=== PATIENT | female | born 2000 | race African-American/Black ===

== ENCOUNTER 2018-02-22 08:25 | Emergency (ER) | payer SELFPAY ==
--- NOTE | 2018-02-22 09:03 | EDM.PDOC ---
ED HPI GENERAL MEDICAL PROBLEM - General Chief Complaint: General Stated Complaint: COUGH/BODY ACHES/CONGESTION Time Seen by Provider: 02/22/18 08:54 - History of Present Illness INITIAL COMMENTS - FREE TEXT/NARRATIVE: 17-year-old female comes in with body aches fevers and a dry nonproductive cough. This started the day before yesterday she felt really good the day before that. She did not have a flu shot this year. Past medical history is unremarkable. Patient is tried some ibuprofen that has not really seem to help. She has no nausea vomiting or diarrhea just is achy all over and has a irritating nonproductive cough she feels warm all the time no documented fevers. Generalized Pain Score (Numeric/FACES): 7 - Related Data Allergies Allergy/AdvReac Type Severity Reaction Status Date / Time No Known Allergies Allergy Verified 02/22/18 08:31 Home Meds: Home Meds Oseltamivir [Tamiflu] 75 mg PO Q12H #10 cap 02/22/18 [Rx] Past Medical History - Past Health History Medical/Surgical History: Denies Medical/Surgical History Social & Family History - Family History Family Medical History: Noncontributory - Tobacco Use Smoking Status *Q: Current Every Day Smoker Years of Tobacco use: 3 Packs/Tins Daily: 0.1 - Caffeine Use Caffeine Use: Reports: Coffee, Soda - Recreational Drug Use Recreational Drug Use: Yes Drug Use in Last 12 Months: Yes Recreational Drug Type: Reports: Marijuana/Hashish Recreational Drug Use Frequency: Socially ED ROS GENERAL - Review of Systems Review Of Systems: See Below Constitutional: Reports: Fever, Chills, Other (Nothing documented) HEENT: Reports: Rhinitis Respiratory: Reports: Cough. Denies: Shortness of Breath, Wheezing, Sputum, Hemoptysis Cardiovascular: Reports: No Symptoms Endocrine: Reports: No Symptoms GI/Abdominal: Denies: Constipation, Diarrhea, Nausea, Vomiting : Reports: No Symptoms Musculoskeletal: Reports: Muscle Pain Skin: Reports: No Symptoms Neurological: Reports: No Symptoms Psychiatric: Reports: No Symptoms ED EXAM, GENERAL - Physical Exam Exam: See Below Exam Limited By: No Limitations General Appearance: Alert, No Apparent Distress, Other (Vitals normal) Eye Exam: Bilateral Eye: Normal Inspection Ears: Normal External Exam, Normal Canal, Hearing Grossly Normal, Normal TMs Nose: Clear Rhinorrhea Throat/Mouth: Normal Inspection, Normal Lips, Normal Teeth, Normal Gums, Normal Oropharynx, Normal Voice, No Airway Compromise Head: Atraumatic, Normocephalic Neck: Normal Inspection, Supple, Non-Tender, Full Range of Motion Respiratory/Chest: No Respiratory Distress, Lungs Clear, Normal Breath Sounds Cardiovascular: Regular Rate, Rhythm, No Edema, No Murmur GI/Abdominal: Normal Bowel Sounds, Soft, Non-Tender Back Exam: Normal Inspection, Other (She has some vague muscle discomfort). No : CVA Tenderness (L), CVA Tenderness (R) Extremities: Normal Inspection, No Pedal Edema Neurological: Alert, Oriented, Normal Cognition Psychiatric: Normal Affect, Normal Mood Course - Vital Signs Last Recorded V/S: Last Vital Signs Temp 36.7 C 02/22/18 08:31 Pulse 69 02/22/18 08:31 Resp 18 02/22/18 08:31 BP 132/76 02/22/18 08:31 Pulse Ox 95 02/22/18 08:31 - Re-Assessments/Exams Free Text/Narrative Re-Assessment/Exam: 02/22/18 09:06 Discussed the pros and cons of checking a flu test even if it came back negative I would offer her treatment with Tamiflu. The patient would like to try the Tamiflu understanding and has side effects as well. We'll start her on an albuterol MDI to help with the bronchitis component of her illness. Departure - Departure Time of Disposition: 09:07 Disposition: Home, Self-Care 01 Clinical Impression: Influenza, Bronchitis - Discharge Information Prescriptions: Oseltamivir [Tamiflu] 75 mg PO Q12H #10 cap Referrals: PCP,None [Primary Care Provider] - Additional Instructions: Return to emergency room with any questions problems worsening symptoms. Use the inhaler 2 puffs every 4 hours while awake. Take the medication as directed. Take ibuprofen 4-600 mg every 6 hours with food and this may help with the aches and pains. Follow-up in the clinic early next week if needed. [phone]
[2018-02-22] MEDS ORDERED: Albuterol 6.7 GM Inhaler INH ONE (09:06)
== END 2018-02-22 09:22 | disposition home or self-care (01) ==
LOC: JD.ED 08:25
DX: J40 Bronchitis, not specified as acute or chronic (principal); J11.1 Influenza due to unidentified influenza virus with other respiratory manifestations; F17.210 Nicotine dependence, cigarettes, uncomplicated
CPT/HCPCS: 94640; 99283; A9270

== ENCOUNTER 2018-04-26 19:49 | Emergency (ER) | payer SELFPAY ==
[2018-04-26] MEDS ORDERED: Albuterol/Ipratropium 3.0-0.5 MG/3 ML Neb Soln NEB ONE (21:46)
--- NOTE | 2018-04-26 23:12 | EDM.PDOC ---
ED HPI GENERAL MEDICAL PROBLEM - General Chief Complaint: Respiratory Problem Stated Complaint: CHILL COUGH HEADACHE Time Seen by Provider: 04/26/18 21:31 Source of Information: Reports: Patient History Limitations: Reports: No Limitations - History of Present Illness INITIAL COMMENTS - FREE TEXT/NARRATIVE: This is a 18-year-old female. This morning onset of fever up to 102 with cough and body aches and a headache. She was diagnosed with influenza in February of this year and she is continued to have a cough that is become chronic and persistent and recently she been coughing up green and brown sputum. She got an inhaler in February and then using it but she did not get the Tamiflu because it was too expensive. She comes to the ER tonight because of the constant coughing and fever and she is afraid she might have the flu again. She has had some nausea but no vomiting and no diarrhea. Generalized Pain Score (Numeric/FACES): 10 - Related Data Allergies Allergy/AdvReac Type Severity Reaction Status Date / Time No Known Allergies Allergy Verified 02/22/18 08:31 Home Meds: Home Meds Albuterol Sulfate [Albuterol Sulfate Hfa] 18 gm IH Q6H PRN #1 hfa.[email or web address] [Rx] Azithromycin [Zithromax] 250 mg PO DAILY #6 tab 04/26/18 [Rx] Past Medical History - Past Health History Medical/Surgical History: Denies Medical/Surgical History - Infectious Disease History Infectious Disease History: Reports: Influenza Social & Family History - Family History Family Medical History: Noncontributory - Tobacco Use Smoking Status *Q: Current Every Day Smoker Years of Tobacco use: 5 Packs/Tins Daily: 0.2 - Caffeine Use Caffeine Use: Reports: Energy Drinks, Soda - Recreational Drug Use Recreational Drug Use: No ED ROS GENERAL - Review of Systems Review Of Systems: See Below Constitutional: Reports: Fever, Chills, Malaise HEENT: Reports: Rhinitis Respiratory: Reports: Shortness of Breath, Wheezing, Cough, Sputum Cardiovascular: Denies: Chest Pain Endocrine: Reports: No Symptoms GI/Abdominal: Reports: Nausea. Denies: Diarrhea, Vomiting : Reports: No Symptoms Musculoskeletal: Reports: Other (Body aches) Skin: Reports: No Symptoms Neurological: Reports: No Symptoms Psychiatric: Reports: No Symptoms Hematologic/Lymphatic: Reports: No Symptoms ED EXAM, GENERAL - Physical Exam Exam: See Below Exam Limited By: No Limitations General Appearance: Alert, WD/WN, No Apparent Distress Eye Exam: Bilateral Eye: Normal Inspection Ears: Normal External Exam, Normal Canal, Normal TMs Nose: Nasal Drainage Throat/Mouth: Normal Inspection, Normal Lips, Normal Oropharynx, Normal Voice, No Airway Compromise Head: Normocephalic Neck: Supple Respiratory/Chest: No Respiratory Distress, Other (She has a mild expiratory wheezing but no prolonged expiratory phase noted ) Cardiovascular: Regular Rate, Rhythm, No Murmur GI/Abdominal: Soft, Non-Tender Back Exam: Full Range of Motion Extremities: Normal Inspection, Normal Range of Motion Neurological: Alert, Oriented Psychiatric: Normal Affect, Normal Mood Skin Exam: Warm, Dry Course - Vital Signs Last Recorded V/S: Last Vital Signs Temp 102.0 F H 04/26/18 20:29 Pulse 96 04/26/18 20:29 Resp 20 04/26/18 20:29 BP 126/81 04/26/18 20:29 Pulse Ox 95 04/26/18 22:16 - Orders/Labs/Meds Orders: Active Orders 24 hr Category Date Time Status RT Aerosol Therapy [RC] ASDIRECTED Care 04/26/18 21:46 Active Chest 2V [CR] Stat Exams 04/26/18 21:47 Taken Labs: Laboratory Tests 04/26/18 04/26/18 Range/Units 21:10 21:10 WBC 6.26 (3.98-10.04) K/mm3 RBC 5.00 (3.98-5.22) M/mm3 Hgb 12.9 (11.2-15.7) gm/L Hct 39.4 (34.1-44.9) % MCV 78.8 L (79.4-94.8) fl MCH 25.8 (25.6-32.2) pg MCHC 32.7 (32.2-35.5) g/dl RDW Std Deviation 44.5 (36.4-46.3) fL Plt Count 189 (182-369) K/mm3 MPV 10.7 (9.4-12.3) fl Neut % (Auto) 75.9 H (34.0-71.1) % Lymph % (Auto) 10.2 L (19.3-51.7) % [place] % (Auto) 12.8 H (4.7-12.5) % Eos % (Auto) 0.6 L (0.7-5.8) Baso % (Auto) 0.2 (0.1-1.2) % Neut # (Auto) 4.75 (1.56-6.13) K/mm3 Lymph # (Auto) 0.64 L (1.18-3.74) K/mm3 [place] # (Auto) 0.80 H (0.24-0.36) K/mm3 Eos # (Auto) 0.04 (0.04-0.36) K/mm3 Baso # (Auto) 0.01 (0.01-0.08) K/mm3 Sodium 136 (136-145) mEq/L Potassium 4.0 (3.5-5.1) mEq/L Chloride 101 (98-107) mEq/L Carbon Dioxide 23 (21-32) mEq/L Anion Gap 16.0 H (5-15) BUN 6 L (7-18) mg/dL Creatinine 0.8 (0.55-1.02) mg/dL Est Cr Clr Drug Dosing 92.79 mL/min Estimated GFR (MDRD) > 60 (>60) mL/min BUN/Creatinine Ratio 7.5 L (14-18) Glucose 97 (74-106) mg/dL Calcium 9.4 (8.5-10.1) mg/dL Total Bilirubin 0.4 (0.2-1.0) mg/dL AST 20 (15-37) U/L ALT 25 (14-59) U/L Alkaline Phosphatase 56 (46-116) U/L C-Reactive Protein 1.7 H* (<1.0) mg/dL Total Protein 8.1 (6.4-8.2) g/dl Albumin 4.1 (3.4-5.0) g/dl Globulin 4.0 gm/dL Albumin/Globulin Ratio 1.0 (1-2) Meds: Medications Discontinued Medications Generic Name Dose Route Start Last Admin Trade Name Freq PRN Reason Stop Dose Admin Albuterol/Ipratropium 3 ml 04/26/18 21:46 04/26/18 22:14 Duoneb 3.0-0.5 Mg/3 Ml NEB 04/26/18 21:47 3 ml ONETIME ONE Administration Ceftriaxone Sodium 1 gm/ 0 gm 04/26/18 23:15 04/26/18 23:31 Lidocaine HCl 2.1 ml IM 1 inj Q24H KACEY Administration - Radiology Interpretation Free Text/Narrative:: Chest x-ray does not show any acute infiltrates. - Re-Assessments/Exams Free Text/Narrative Re-Assessment/Exam: 04/26/18 23:08 I spoke to the patient regarding her x-ray results and lab results. I'm going to put her on some antibiotics because I believe she has a bronchitis that's a little more with a fever and she might be developing an early pneumonia. She's had this bronchitis since February and this seems to be getting worse with green yellow and brown phlegm and now she is running a fever. 04/27/18 23:10 After the breathing treatment the patient was feeling a little better. She did request a inhaler as well as the antibiotics. We will provide these for her. She does know that her flu swab today was negative. Departure - Departure Time of Disposition: 23:08 Disposition: Home, Self-Care 01 Condition: Good Clinical Impression: Febrile illness, acute Acute bronchitis Qualifiers: Bronchitis organism: unspecified organism Qualified Code(s): J20.9 - Acute bronchitis, unspecified - Discharge Information *PRESCRIPTION DRUG MONITORING PROGRAM REVIEWED*: Not Applicable *COPY OF PRESCRIPTION DRUG MONITORING REPORT IN PATIENT WOOD: Not Applicable Prescriptions: Albuterol Sulfate [Albuterol Sulfate Hfa] 18 gm IH Q6H PRN #1 hfa.aer.ad PRN Reason: Wheezing Azithromycin [Zithromax] 250 mg PO DAILY #6 tab Instructions: Acute Bronchitis, Adult Referrals: PCP,None [Primary Care Provider] - Forms: ED Department Discharge, ED Return to Work/School Form Additional Instructions: Drink lots of fluids, rest and sleep as much as possible, use Tylenol or ibuprofen as needed for fever, take the antibiotics faithfully, use the inhaler as needed for wheezing, follow-up with your family doctor this coming week if you're not getting better, return to the ER if needed - My Orders Last 24 Hours: My Active Orders 04/26/18 21:46 RT Aerosol Therapy [RC] ASDIRECTED 04/26/18 21:47 Chest 2V [CR] Stat - Assessment/Plan Last 24 Hours: My Active Orders 04/26/18 21:46 RT Aerosol Therapy [RC] ASDIRECTED 04/26/18 21:47 Chest 2V [CR] Stat
[2018-04-26] MEDS ORDERED: cefTRIAXone 1 GM, Lidocaine 1% 2.1 ML IM SCH ×2 (23:15)
--- NOTE | 2018-04-29 09:06 | CR ---
Chest: Two views of the chest were obtained. Comparison: No prior chest x-ray. Heart size and mediastinum are normal. Lungs are clear. Bony structures are unremarkable. Impression: 1. Nothing acute is seen on two-view chest x-ray. Diagnostic code #1
== END 2018-04-26 23:34 | disposition home or self-care (01) ==
LOC: JD.ED 19:49
DX: J20.9 Acute bronchitis, unspecified (principal); R50.9 Fever, unspecified; F17.210 Nicotine dependence, cigarettes, uncomplicated
CPT/HCPCS: 36415; 71046; 80053; 85025; 86140; 87804; 94640; 96372; 99284; J0696; J2001; 99283; J7620-GY

== ENCOUNTER 2019-08-20 10:45 | Inpatient (IN) | payer MEDICAID, OTHER ==
[2019-08-20] MEDS ORDERED: Sodium Chloride 0.9% 10 ML Syringe FLUSH PRN (11:01)
[2019-08-20] MEDS ORDERED: Nalbuphine 10 MG/ML Syringe IVPUSH PRN (11:01)
[2019-08-20] MEDS ORDERED: Acetaminophen 325 MG Tab PO PRN (11:01)
[2019-08-20] MEDS ORDERED: Oxytocin/Lactated Ringers 10 UNIT/1,000 ML BAG IV SCH (11:15)
[2019-08-20] MEDS ORDERED: Lactated Ringers 1,000 ML IV SCH (11:15)
[2019-08-20] MEDS ORDERED: Ampicillin 2 GM in Sodium Chloride 0.9% 100 ML IV ONE (11:30)
[2019-08-20] MEDS: Lactated Ringers 1,000 ML IV SCH ×2 (11:37→22:21)
[2019-08-20] MEDS: Misoprostol 25 MCG (1/4 of 100 MCG) Tab VAG PRN ×3 (11:38→19:34)
--- NOTE | 2019-08-20 11:42 | PCM.LDHP ---
<Camille Pastrana - Last Filed: 08/20/19 12:19> L&D History of Present Illness - General Date of Service: 08/20/19 Admit Problem/Dx: Patient Status Order with Admit Dx/Problem 08/20/19 11:02 Patient Status [ADT] Routine Admission Diagnosis/Problem Admission Diagnosis/Problem Gestational hypertension Source of Information: Patient History Limitations: Reports: No Limitations - History of Present Illness Introduction:: Ricardo Tucker is a 19-year-old at estimated gestational age of 37 weeks and 4 days, with YANELIS of 09/06/2019, who was admitted directly from the OB clinic to the labor and delivery unit for gestational hypertension. Present Illness Comments:: Ricardo Tucker is a 19-year-old at estimated gestational age of 37 weeks and 4 days, with YANELIS of 09/06/2019, who was admitted directly from the OB clinic to the labor and delivery unit for gestational hypertension. She will be induced today. She has no known allergies. She has a past medical history of asthma, for which she uses a rescue inhaler approximately three times per year. OBGYN History: This is her first . She denies previous miscarriages or abortions. She had normal menarche at age 10 and estimates her cycles are normally between 26 and 31 days. Course: LMP was 11/11/2018. She started her at a weight of 160 pounds and weighs 188 pounds today, for a total weight gain of 28 pounds. She developed iron-deficiency anemia during her and was treated with oral iron supplementation. Fundal heights were appropriate throughout . Most recent ultrasound on 05/22/2019 displayed appropriate development. Vital signs remained stable until 08/14/2019. At that time, her blood pressures were 132/74 and 140/74. At her follow-up visit today in clinic, her blood pressures were 144/78 and 140/74. She was admitted to labor and delivery for gestational hypertension and induction. This author observed her most recent blood pressure on the L&D unit to be 149/78. Initial labs on 12/26/2018 showed type O+ blood with a negative antibody screen; hemoglobin of 13.5 g/d;, hematocrit of 40.9%, and platelet count of 215 10*3/uL . Second trimester labs on 04/30/2019 showed a hemoglobin of 11.1 g/dl, hematocrit of 34.2%, and a platelet count of 152 10*3/uL. Most recent labs on 07/17/2019 show a hemoglobin of 10.3 g/dl, hematocrit of 32.0%, and a platelet count of 178 10*3/uL. She is rubella immune. Her RPR was nonreactive. Her Hepatitis B surface antigen and HIV tests were both negative. Chlamydia and gonorrhea screening were negative. Group B strep testing was POSITIVE. Genetic screening showed she does carry the sickle cell trait. - Related Data Allergies/Adverse Reactions: Allergies Allergy/AdvReac Type Severity Reaction Status Date / Time No Known Allergies Allergy Verified 08/20/19 10:59 Home Medications: Home Meds Albuterol Sulfate [Albuterol Sulfate Hfa] 18 gm IH Q6H PRN #1 hfa.aer.ad 04/26/18 [Rx] Azithromycin [Zithromax] 250 mg PO DAILY #6 tab 04/26/18 [Rx] Past Medical History HEENT History: Reports: None Cardiovascular History: Reports: None Respiratory History: Reports: Asthma (Mild asthma, rescue inhaler use < 3x/year) Gastrointestinal History: Reports: None Musculoskeletal History: Reports: None Neurological History: Reports: None Psychiatric History: Reports: None Endocrine/Metabolic History: Reports: None Hematologic History: Reports: None Immunologic History: Reports: None Dermatologic History: Reports: None - Infectious Disease History Infectious Disease History: Reports: Influenza - Past Surgical History Head Surgeries/Procedures: Reports: None Social & Family History - Family History Cardiac: Reports: Hypertension (Maternal grandmother, mother.) Psychiatric: Reports: Schizophrenia (Maternal aunt.), Other (See Below) Other Psychiatric Family History: Post- depression in two maternal aunts. - Tobacco Use Smoking Status *Q: Former Smoker Tobacco Use Within Last Twelve Months: Cigarettes Years of Tobacco use: 5 Packs/Tins Daily: 0.1 Used Tobacco, but Quit: Yes Month/Year Tobacco Last Used: February 2019 - Caffeine Use Caffeine Use: Reports: Energy Drinks, Soda - Alcohol Use Alcohol Use History: Yes Date of Last Drink: 09/19/18 - Recreational Drug Use Recreational Drug Use: Yes Drug Use in Last 12 Months: No Recreational Drug Type: Reports: Marijuana/Hashish Recreational Drug Use Frequency: Daily Recreational Drug Last Use: October 2019 Recreational Drug Route: Reports: Inhaled H&P Review of Systems - Review of Systems: Review Of Systems: See Below General: Reports: No Symptoms HEENT: Reports: No Symptoms Pulmonary: Reports: No Symptoms Cardiovascular: Reports: Edema Gastrointestinal: Reports: No Symptoms Genitourinary: Reports: No Symptoms Musculoskeletal: Reports: No Symptoms Skin: Reports: No Symptoms Psychiatric: Reports: No Symptoms Neurological: Reports: No Symptoms Hematologic/Lymphatic: Reports: No Symptoms Immunologic: Reports: No Symptoms L&D Exam - Exam Exam: See Below - OB Specific Fundal Height In cm: 37 Movement: Active Estimated Weight: 6.7-7.0 lbs - Exam General: Alert, Oriented, Cooperative HEENT: Conjunctiva Clear, EACs Clear, EOMI, Hearing Intact, Mucosa Moist & [place], Normal Nasal Septum, Posterior Pharynx Clear, Pupils Equal, Pupils Reactive, PERRLA Neck: Supple, Trachea Midline, +2 Carotid Pulse wo Bruit, Full Range of Motion, Other (Thyroid without enlargement or nodules.) Lungs: Clear to Auscultation, Normal Respiratory Effort Cardiovascular: Regular Rate, Regular Rhythm, Normal S1, Normal S2 GI/Abdominal Exam: Normal Bowel Sounds, No Organomegaly, No Distention, No Mass Rectal Exam: Deferred Genitourinary: Normal external exam Back Exam: Normal Inspection, Other (No CVA tenderness) Extremities: Normal Range of Motion, Non-Tender, Normal Capillary Refill, Pedal Edema (1+ pitting edema) Skin: Warm, Dry, Intact, Other (Tatoos on bilateral upper arms and right thigh.) Neurological: Cranial Nerves Intact, Reflexes Equal Bilateral DTR: 2+: Bicep (L), Bicep (R), Patella (L), Patella (R), Achilles (L), Achilles (R) Psychiatric: Alert, Normal Affect, Normal Mood - Patient Data Result Diagrams: 08/20/19 11:15 Problem List Initiated/Reviewed/Updated: Yes Orders Last 24hrs: Active Orders 24 hr Category Date Time Status Patient Status [ADT] Routine ADT 08/20/19 11:02 Active Activity as Tolerated [RC] PFP Care 08/20/19 11:02 Active Communication Order [RC] ASDIRECTED Care 08/20/19 11:02 Active Communication Order [RC] ASDIRECTED Care 08/20/19 11:02 Active Communication Order [RC] ASDIRECTED Care 08/20/19 11:02 Active Communication Order [RC] ASDIRECTED Care 08/20/19 11:02 Active Heart Tones [RC] ASDIRECTED Care 08/20/19 11:02 Active Monitoring [RC] INTERMITTENT Care 08/20/19 11:02 Active Non Stress Test [RC] PER UNIT ROUTINE Care 08/20/19 11:02 Active Notify Provider Vital Signs [RC] PRN Care 08/20/19 11:05 Active Notify Provider [RC] ASDIRECTED Care 08/20/19 11:02 Active Notify Provider [RC] ASDIRECTED Care 08/20/19 11:04 Active Notify Provider [RC] PFP Care 08/20/19 11:02 Active Notify Provider [RC] PRN Care 08/20/19 11:02 Active Peripheral IV Care [RC] . DIRECTED Care 08/20/19 11:02 Active Pump Management, Intrathecal [RC] ASDIRECTED Care 08/20/19 11:05 Active Vaginal Exam [RC] ASDIRECTED Care 08/20/19 11:02 Active Vital Signs [RC] ASDIRECTED Care 08/20/19 11:02 Active Regular Diet [DIET] Diet 08/20/19 Lunch Active CBC WITH AUTO DIFF [HEME] Routine Lab 08/20/19 11:01 Ordered COMPREHENSIVE METABOLIC PN,CMP [CHEM] Routine Lab 08/20/19 11:01 Ordered CORONAVIRUS COVID-19 MAGALI [MOLEC] Stat Lab 08/20/19 10:55 Ordered PROTEIN/CREATININE RATIO,URINE [URCHEM] Routine Lab 08/20/19 11:06 Ordered RAPID PLASMA REAGIN,RPR [CHEM] Routine Lab 08/20/19 11:02 Ordered Acetaminophen [Tylenol] Med 08/20/19 11:01 Active 650 mg PO Q6H PRN Ampicillin 1 gm Med 08/20/19 15:30 Active Sodium Chloride 0.9% [Normal Saline] 100 ml IV Q4H Ampicillin 2 gm Med 08/20/19 11:30 Active Sodium Chloride 0.9% [Normal Saline] 100 ml IV ONETIME Lactated Ringers [Ringers, Lactated] 1,000 ml Med 08/20/19 11:15 Active IV ASDIRECTED Lactated Ringers [Ringers, Lactated] 1,000 ml Med 08/20/19 11:15 Active IV ASDIRECTED Nalbuphine [Nubain] Med 08/20/19 11:01 Active 10 mg IVPUSH Q2H PRN Oxytocin/Lactated Ringers [Pitocin in LR 10 Units/1,000 Med 08/20/19 11:15 Active ML] 10 unit in 1,000 ml IV .CONTINUOUS Sodium Chloride 0.9% [Saline Flush] Med 08/20/19 11:01 Active 10 ml FLUSH ASDIRECTED PRN miSOPROStoL [Cytotec] Med 08/20/19 11:01 Active 25 mcg VAG Q4H PRN Electronic Heart Tones Ext w TOCO [WOMSER] Ot 08/20/19 11:02 Ordered Routine Electronic Heart Tones Internal [WOMSER] Per Unit Ot 08/20/19 11:02 Ordered Routine Medication Administration Instruction [OM.PC] [facility] 08/20/19 11:15 Ordered ASDIRECTED Peripheral IV Insertion Adult [OM.PC] Routine Ot 08/20/19 11:02 Ordered Peripheral IV Insertion Adult [OM.PC] Routine Ot 08/20/19 11:02 Ordered Resuscitation Status Routine Resus Stat 08/20/19 11:01 Ordered Medication Orders Acetaminophen (Tylenol) 650 mg PO Q6H PRN PRN Reason: Pain (Mild 1-3) and fever Lactated Ringer's (Ringers, Lactated) 1,000 mls @ 40 mls/hr IV ASDIRECTED KACEY Lactated Ringer's (Ringers, Lactated) 1,000 mls @ 100 mls/hr IV ASDIRECTED KACEY Ampicillin Sodium 2 gm/ Sodium (Chloride) 100 mls @ 200 mls/hr IV ONETIME ONE Stop: 08/20/19 11:59 Ampicillin Sodium 1 gm/ Sodium (Chloride) 100 mls @ 200 mls/hr IV Q4H KACEY Oxytocin/Lactated Ringer's (Pitocin In Lr 10 Units/1,000 Ml) 10 unit in 1,000 mls @ 100 mls/hr IV .CONTINUOUS KACEY Misoprostol (Cytotec) 25 mcg VAG Q4H PRN PRN Reason: cervical ripening Nalbuphine HCl (Nubain) 10 mg IVPUSH Q2H PRN PRN Reason: Pain Sodium Chloride (Saline Flush) 10 ml FLUSH ASDIRECTED PRN PRN Reason: Keep Vein Open Assessment/Plan Comment:: She is admitted to the labor and delivery unit for induction. Her blood pressures are being monitored. She will be given IV ampicillin later this afternoon, as she is GBS positive. <William Walters - Last Filed: 08/20/19 15:26> L&D History of Present Illness - General Admit Problem/Dx: Patient Status Order with Admit Dx/Problem 08/20/19 11:02 Patient Status [ADT] Routine Admission Diagnosis/Problem Admission Diagnosis/Problem Gestational hypertension - History of Present Illness Present Illness Comments:: Of note the hemoglobin solubility testing for this patient was negative and does NOT show any evidence of sickle cell disease or trait. Past Medical History Respiratory History: Reports: Asthma [employer] History: Reports: : 1 Para: 0 Social & Family History - Tobacco Core Measures Tobacco Use/Smoking Within Last 30 Days: No Smokeless Tobacco Use in Last 30 Days: No - Living Situation & Occupation Living situation: Reports: Single, with Significant Other L&D Exam - OB Specific Contraction Duration (sec): 45-60 Contraction Frequency (min): 2-6 Contraction Intensity: Mild to Moderate Heart Tones: Present Heart Tones per Min: 135 (+15 x 15 accelerations, no decelerations) Heart Rate (FHR) Variability: Moderate (6-25 bmp) Presentation: Vertex Estimated Weight: 6.5-7.0 lbs by Shahzad's - Duncan Score Duncan Score Cervix Position: Posterior Duncan Score Consistency: Medium Duncan Score Effacement: 31-50% (50%) Duncan Score Dilation: 1-2 cm (0.5 cm) Duncan Score 's Station: -3 (-4) Duncan Score Total: 3 - Exam GI/Abdominal Exam: Other (Gravid) - Patient Data Lab Results Last 24 hrs: Laboratory Results - last 24 hr 08/20/19 08/20/19 08/20/19 Range/Units 10:55 10:57 11:15 WBC 9.51 (3.98-10.04) K/mm3 RBC 4.00 (3.98-5.22) M/mm3 Hgb 10.5 L (11.2-15.7) gm/dl Hct 32.8 L (34.1-44.9) % MCV 82.0 (79.4-94.8) fl MCH 26.3 (25.6-32.2) pg MCHC 32.0 L (32.2-35.5) g/dl RDW Std Deviation 47.0 H (36.4-46.3) fL Plt Count 152 L (182-369) K/mm3 MPV 11.1 (9.4-12.3) fl Neut % (Auto) 66.6 (34.0-71.1) % Lymph % (Auto) 22.5 (19.3-51.7) % [place] % (Auto) 8.6 (4.7-12.5) % Eos % (Auto) 0.8 (0.7-5.8) Baso % (Auto) 0.2 (0.1-1.2) % Neut # (Auto) 6.33 H (1.56-6.13) K/mm3 Lymph # (Auto) 2.14 (1.18-3.74) K/mm3 [place] # (Auto) 0.82 H (0.24-0.36) K/mm3 Eos # (Auto) 0.08 (0.04-0.36) K/mm3 Baso # (Auto) 0.02 (0.01-0.08) K/mm3 Manual Slide Review Abnormal smear Sodium (136-145) mEq/L Potassium (3.5-5.1) mEq/L Chloride (98-107) mEq/L Carbon Dioxide (21-32) mEq/L Anion Gap (5-15) BUN (7-18) mg/dL Creatinine (0.55-1.02) mg/dL Est Cr Clr Drug Dosing Estimated GFR (MDRD) (>60) mL/min BUN/Creatinine Ratio (14-18) Glucose (74-106) mg/dL Calcium (8.5-10.1) mg/dL Total Bilirubin (0.2-1.0) mg/dL AST (15-37) U/L ALT (14-59) U/L Alkaline Phosphatase (46-116) U/L Total Protein (6.4-8.2) g/dl Albumin (3.4-5.0) g/dl Globulin gm/dL Albumin/Globulin Ratio (1-2) Ur Random Creatinine 80.5 (30.0-125.0) mg/dL U Random Total Protein 19.6 H (0.0-11.8) mg/dL Protein/Creatinin Ratio 243.5 H (0-149) mg/g SARS-CoV-2 RNA (RT-PCR) Negative (NEGATIVE) 08/20/19 Range/Units 11:15 WBC (3.98-10.04) K/mm3 RBC (3.98-5.22) M/mm3 Hgb (11.2-15.7) gm/dl Hct (34.1-44.9) % MCV (79.4-94.8) fl MCH (25.6-32.2) pg MCHC (32.2-35.5) g/dl RDW Std Deviation (36.4-46.3) fL Plt Count (182-369) K/mm3 MPV (9.4-12.3) fl Neut % (Auto) (34.0-71.1) % Lymph % (Auto) (19.3-51.7) % [place] % (Auto) (4.7-12.5) % Eos % (Auto) (0.7-5.8) Baso % (Auto) (0.1-1.2) % Neut # (Auto) (1.56-6.13) K/mm3 Lymph # (Auto) (1.18-3.74) K/mm3 [place] # (Auto) (0.24-0.36) K/mm3 Eos # (Auto) (0.04-0.36) K/mm3 Baso # (Auto) (0.01-0.08) K/mm3 Manual Slide Review Sodium 138 (136-145) mEq/L Potassium 3.4 L (3.5-5.1) mEq/L Chloride 106 (98-107) mEq/L Carbon Dioxide 20 L (21-32) mEq/L Anion Gap 15.4 H (5-15) BUN 4 L (7-18) mg/dL Creatinine 0.6 (0.55-1.02) mg/dL Est Cr Clr Drug Dosing TNP Estimated GFR (MDRD) > 60 (>60) mL/min BUN/Creatinine Ratio 6.7 L (14-18) Glucose 85 (74-106) mg/dL Calcium 8.9 (8.5-10.1) mg/dL Total Bilirubin 0.3 (0.2-1.0) mg/dL AST 14 L (15-37) U/L ALT 14 (14-59) U/L Alkaline Phosphatase 78 (46-116) U/L Total Protein 6.4 (6.4-8.2) g/dl Albumin 2.7 L (3.4-5.0) g/dl Globulin 3.7 gm/dL Albumin/Globulin Ratio 0.7 L (1-2) Ur Random Creatinine (30.0-125.0) mg/dL U Random Total Protein (0.0-11.8) mg/dL Protein/Creatinin Ratio (0-149) mg/g SARS-CoV-2 RNA (RT-PCR) (NEGATIVE) Result Diagrams: 08/20/19 11:15 08/20/19 11:15 - Problem List (1) 37 weeks gestation of SNOMED Code(s): 81911714 ICD Code: Z3A.37 - 37 WEEKS GESTATION OF Status: Acute Current Visit: Yes (2) Gestational hypertension SNOMED Code(s): 585134634 ICD Code: O13.9 - GESTATIONAL HTN W/O SIGNIFICANT PROTEINURIA, UNSP TRIMESTER Status: Acute Current Visit: Yes (3) Asthma SNOMED Code(s): 448678653 ICD Code: J45.909 - UNSPECIFIED ASTHMA, UNCOMPLICATED Status: Acute Current Visit: Yes (4) ancestry requiring population-specific genetic screening SNOMED Code(s): 81957271, 839470870, 316793251 ICD Code: Z13.79 - ENCNTR FOR OTH SCREENING FOR GENETIC AND CHROMSOML ANOMALIES Status: Acute Current Visit: Yes (5) GBS (group B Streptococcus carrier), +RV culture, currently SNOMED Code(s): 2463659203972, 981299745, 5794063883518 ICD Code: O99.820 - STREPTOCOCCUS B CARRIER STATE COMPLICATING Status: Acute Current Visit: Yes Orders Last 24hrs: Active Orders 24 hr Category Date Time Status Patient Status [ADT] Routine ADT 08/20/19 11:02 Active Activity as Tolerated [RC] PFP Care 08/20/19 11:02 Active Communication Order [RC] ASDIRECTED Care 08/20/19 11:02 Active Communication Order [RC] ASDIRECTED Care 08/20/19 11:02 Active Communication Order [RC] ASDIRECTED Care 08/20/19 11:02 Active Communication Order [RC] ASDIRECTED Care 08/20/19 11:02 Active Heart Tones [RC] ASDIRECTED Care 08/20/19 11:02 Active Monitoring [RC] INTERMITTENT Care 08/20/19 11:02 Active Notify Provider Vital Signs [RC] PRN Care 08/20/19 11:05 Active Notify Provider [RC] ASDIRECTED Care 08/20/19 11:02 Active Notify Provider [RC] ASDIRECTED Care 08/20/19 11:04 Active Notify Provider [RC] PFP Care 08/20/19 11:02 Active Notify Provider [RC] PRN Care 08/20/19 11:02 Active Peripheral IV Care [RC] . DIRECTED Care 08/20/19 11:02 Active Pump Management, Intrathecal [RC] ASDIRECTED Care 08/20/19 11:05 Active Vaginal Exam [RC] ASDIRECTED Care 08/20/19 11:02 Active Vital Signs [RC] ASDIRECTED Care 08/20/19 11:02 Active Regular Diet [DIET] Diet 08/20/19 Lunch Active RAPID PLASMA REAGIN,RPR [CHEM] Routine Lab 08/20/19 11:15 Received Acetaminophen [Tylenol] Med 08/20/19 11:01 Active 650 mg PO Q6H PRN Ampicillin 1 gm Med 08/20/19 15:30 Active Sodium Chloride 0.9% [Normal Saline] 100 ml IV Q4H Lactated Ringers [Ringers, Lactated] 1,000 ml Med 08/20/19 11:15 Active IV ASDIRECTED Lactated Ringers [Ringers, Lactated] 1,000 ml Med 08/20/19 11:15 Active IV ASDIRECTED Nalbuphine [Nubain] Med 08/20/19 11:01 Active 10 mg IVPUSH Q2H PRN Oxytocin/Lactated Ringers [Pitocin in LR 10 Units/1,000 Med 08/20/19 11:15 Active ML] 10 unit in 1,000 ml IV .CONTINUOUS Sodium Chloride 0.9% [Saline Flush] Med 08/20/19 11:01 Active 10 ml FLUSH ASDIRECTED PRN miSOPROStoL [Cytotec] Med 08/20/19 11:01 Active 25 mcg VAG Q4H PRN Electronic Heart Tones Ext w TOCO [WOMSER] Ot 08/20/19 11:02 Ordered Routine Electronic Heart Tones Internal [WOMSER] Per Unit Oth 08/20/19 11:02 Ordered Routine Medication Administration Instruction [OM.PC] Ot 08/20/19 11:15 Ordered ASDIRECTED Peripheral IV Insertion Adult [OM.PC] Routine Ot 08/20/19 11:02 Ordered Peripheral IV Insertion Adult [OM.PC] Routine Ot 08/20/19 11:02 Ordered Resuscitation Status Routine Resus Stat 08/20/19 11:01 Ordered Medication Orders Acetaminophen (Tylenol) 650 mg PO Q6H PRN PRN Reason: Pain (Mild 1-3) and fever Lactated Ringer's (Ringers, Lactated) 1,000 mls @ 40 mls/hr IV ASDIRECTED KACEY Last Admin: 08/20/19 11:37 Dose: 40 mls/hr Documented by: RUMMVIR Lactated Ringer's (Ringers, Lactated) 1,000 mls @ 100 mls/hr IV ASDIRECTED KACEY Ampicillin Sodium 1 gm/ Sodium (Chloride) 100 mls @ 200 mls/hr IV Q4H KACEY Oxytocin/Lactated Ringer's (Pitocin In Lr 10 Units/1,000 Ml) 10 unit in 1,000 mls @ 100 mls/hr IV .CONTINUOUS KACEY Misoprostol (Cytotec) 25 mcg VAG Q4H PRN PRN Reason: cervical ripening Last Admin: 08/20/19 11:38 Dose: 25 mcg Documented by: RUMMVIR Nalbuphine HCl (Nubain) 10 mg IVPUSH Q2H PRN PRN Reason: Pain Sodium Chloride (Saline Flush) 10 ml FLUSH ASDIRECTED PRN PRN Reason: Keep Vein Open Assessment/Plan Comment:: I have seen and evaluated the patient with the PA student and agree with the note above except for changes as noted. My assessment and plan is listed below. Ricardo Daley is a 19 year old female at 37 weeks 4 days (YANELIS 09/06/2019) who is being kept for observation and medically indicated induction of labor in the setting of gestational hypertension and GBS positive status Refer to observation for elective induction of labor Start induction of labor with Cytotec 25 mcg vaginally now and every 4 hours Intermittent monitoring while on Cytotec with monitoring for 30 minutes after placement of Cytotec and may ambulate as tolerated with category [address] IV and have Lactated Ringer's at 125 ml/hr if not tolerating regular diet May have regular diet while on Cytotec induction Activity as tolerated May have epidural as desired Plans to breast-feed after delivery Start on ampicillin 2 g now and have 1 g every 4 hours after for GBS prophylaxis We will plan to place a Barillas bulb for additional mechanical cervical dilation after the first dose of Cytotec Anticipate vaginal delivery unless otherwise indicated William Walters MD 3:25 PM 08/20/2019
--- NOTE | 2019-08-20 17:10 | PCM.PNLD ---
Labor Progress Note - VS & Meds Vital Signs: Last Vital Signs Temp 37.3 C 08/20/19 13:00 Pulse Resp 18 08/20/19 13:00 BP 142/88 H 08/20/19 13:00 Pulse Ox 98 08/20/19 13:00 Active Medications: Current Medications Acetaminophen (Tylenol) 650 mg PO Q6H PRN PRN Reason: Pain (Mild 1-3) and fever Lactated Ringer's (Ringers, Lactated) 1,000 mls @ 40 mls/hr IV ASDIRECTED KACEY Last Admin: 08/20/19 11:37 Dose: 40 mls/hr Documented by: Lactated Ringer's (Ringers, Lactated) 1,000 mls @ 100 mls/hr IV ASDIRECTED KACEY Ampicillin Sodium 1 gm/ Sodium (Chloride) 100 mls @ 200 mls/hr IV Q4H KACEY Oxytocin/Lactated Ringer's (Pitocin In Lr 10 Units/1,000 Ml) 10 unit in 1,000 mls @ 100 mls/hr IV .CONTINUOUS [facility] Misoprostol (Cytotec) 25 mcg VAG Q4H PRN PRN Reason: cervical ripening Last Admin: 08/20/19 15:43 Dose: 25 mcg Documented by: Nalbuphine HCl (Nubain) 10 mg IVPUSH Q2H PRN PRN Reason: Pain Sodium Chloride (Saline Flush) 10 ml FLUSH ASDIRECTED PRN PRN Reason: Keep Vein Open Discontinued Medications Ampicillin Sodium 2 gm/ Sodium (Chloride) 100 mls @ 200 mls/hr IV ONETIME ONE Stop: 08/20/19 11:59 - Uterine Contractions Contraction Frequency (min): 15+ Contraction Duration (sec): 45-60 Contraction Intensity: Mild to Moderate Uterine Resting Tone: Soft - Monitoring Monitor Mode: Doppler/Auscultation Heart Rate (FHR) Baseline: 130 Heart Rate (FHR) Per Doppler: 130 Heart Rate (FHR) Variability: Moderate (6-25 bmp) Accelerations: Present, 15x15 Decelerations: None Strip Review: Category I - Vaginal Exam Dilation (cm): 1 Effacement (Percent): 20 Station: -4 Cervical Position: Midposition Vaginal Exam Comment: 16 [place] transcervical Barillas bulb placed with use of speculum and ring forceps. The Barillas bulb was filled with 50 mL of sterile saline. Mother and tolerated procedure without difficulty. - Labor Progress (Free Text) Labor Progress: Patient continuing to do well at this time. Patient with labile blood pressures with intermittent mild range blood pressures. No treatment indicated at this time. Continue with routine vitals Monitor for any severe features of preeclampsia including severe headache, epigastric pain or scotomata Intermittent monitoring while on Cytotec for induction Barillas bulb in place for induction of labor Patient to have ampicillin 2 g IV for GBS prophylaxis once the Barillas bulb comes out Patient may have epidural as desired We will plan for artificial rupture membranes once this is possible and safe to perform Anticipate vaginal delivery unless otherwise indicated William Walters MD 5:10 PM 08/20/2019
[2019-08-20] MEDS ORDERED: Misoprostol 25 MCG (1/4 of 100 MCG) Tab ONE (23:28)
[2019-08-21] MEDS: Misoprostol 25 MCG (1/4 of 100 MCG) Tab VAG SCH ×2 (00:26→05:07)
[2019-08-21] MEDS ORDERED: Ampicillin 2 GM AdvVial IV ONE (04:21)
[2019-08-21] MEDS: Ampicillin 1 GM in Sodium Chloride 0.9% 100 ML IV SCH ×4 (04:33→17:28)
[2019-08-21] MEDS ORDERED: Oxytocin/Lactated Ringers 10 UNIT/1,000 ML BAG IV SCH ×2 (05:45→17:26)
--- NOTE | 2019-08-21 08:43 | PCM.PNLD ---
Labor Progress Note - VS & Meds Vital Signs: Last Vital Signs Temp 37.3 C 08/20/19 13:00 Pulse Resp 18 08/20/19 13:00 BP 142/88 H 08/20/19 13:00 Pulse Ox 98 08/20/19 13:00 Active Medications: Current Medications Acetaminophen (Tylenol) 650 mg PO Q6H PRN PRN Reason: Pain (Mild 1-3) and fever Last Admin: 08/21/19 04:32 Dose: 650 mg Documented by: Lactated Ringer's (Ringers, Lactated) 1,000 mls @ 40 mls/hr IV ASDIRECTED KACEY Last Admin: 08/20/19 22:21 Dose: 40 mls/hr Documented by: Lactated Ringer's (Ringers, Lactated) 1,000 mls @ 100 mls/hr IV ASDIRECTED KACEY Oxytocin/Lactated Ringer's (Pitocin In Lr 10 Units/1,000 Ml) 10 unit in 1,000 mls @ 100 mls/hr IV .CONTINUOUS KACEY Ampicillin Sodium 1 gm/ Sodium (Chloride) 100 mls @ 200 mls/hr IV Q4H KACEY Oxytocin/Lactated Ringer's (Pitocin In Lr 10 Units/1,000 Ml) 10 unit in 1,000 mls @ 12 mls/hr IV TITRATE KACEY; Protocol Last Titration: 08/21/19 07:31 Dose: 8 munits/min, 48 mls/hr Documented by: Nalbuphine HCl (Nubain) 10 mg IVPUSH Q2H PRN PRN Reason: Pain Sodium Chloride (Saline Flush) 10 ml FLUSH ASDIRECTED PRN PRN Reason: Keep Vein Open Discontinued Medications Ampicillin Sodium (Ampicillin) Confirm Administered Dose 2 gm IV .STK-MED ONE Stop: 08/21/19 04:22 Last Admin: 08/21/19 04:33 Dose: Not Given Documented by: Ampicillin Sodium 2 gm/ Sodium (Chloride) 100 mls @ 200 mls/hr IV ONETIME ONE Stop: 08/20/19 11:59 Last Admin: 08/21/19 04:25 Dose: 200 mls/hr Documented by: Ampicillin Sodium 1 gm/ Sodium (Chloride) 100 mls @ 200 mls/hr IV Q4H KACEY Last Admin: 08/21/19 04:33 Dose: Not Given Documented by: Misoprostol (Cytotec) 25 mcg VAG Q4H PRN PRN Reason: cervical ripening Last Admin: 08/20/19 19:34 Dose: 25 mcg Documented by: Misoprostol (Cytotec) Confirm Administered Dose 25 mcg .ROUTE .STK-MED ONE Stop: 08/20/19 23:29 Last Admin: 08/21/19 06:07 Dose: Not Given Documented by: Misoprostol (Cytotec) 25 mcg VAG Q4H KACEY Stop: 08/21/19 15:31 Last Admin: 08/21/19 05:07 Dose: Not Given Documented by: - Uterine Contractions Uterine Monitoring Mode: External [place] Contraction Frequency (min): 2-5 Contraction Duration (sec): 45-60 Contraction Intensity: Moderate to Strong Uterine Resting Tone: Soft - Monitoring Monitor Mode: Doppler/Auscultation Heart Rate (FHR) Baseline: 135 Heart Rate (FHR) Per Doppler: 135 Heart Rate (FHR) Variability: Moderate (6-25 bmp) Accelerations: Present, 15x15 Decelerations: None Strip Review: Category I - Vaginal Exam Dilation (cm): 6 Effacement (Percent): 90 Station: -2 Cervical Position: Anterior Vaginal Exam Comment: Artificial rupture membranes performed with [place]. Return of moderate amount of clear fluid with rupture membranes. Mother and tolerated procedure without difficulty. - Labor Progress (Free Text) Labor Progress: Patient making good progress overnight with cervical dilation up to 6 cm at this time Artificial rupture membranes with return of clear fluid performed Patient continues to have intermittent mild range blood pressures. No signs or symptoms of severe features of preeclampsia. Routine vitals Continue Pitocin for induction of labor Continue ampicillin for GBS prophylaxis Patient may have epidural as desired for anesthesia Anticipate vaginal delivery unless otherwise indicated William Walters MD 8:42 AM 08/21/2019
[2019-08-21] MEDS ORDERED: diphenhydrAMINE 50 MG/ML SDV IVPUSH PRN (09:02)
[2019-08-21] MEDS ORDERED: Bupivacaine/fentaNYL/NS 100 ML Bag EPIDUR PRN (09:02)
[2019-08-21] MEDS ORDERED: fentaNYL 100 MCG/2 ML SDV EPIDUR PRN (09:02)
[2019-08-21] MEDS ORDERED: ePHEDrine 50 MG/ML SDV IVPUSH PRN (09:02)
[2019-08-21] MEDS: Lactated Ringers 1,000 ML IV SCH (09:08)
--- NOTE | 2019-08-21 09:31 | PCM.PREANE ---
Preanesthetic Assessment - Procedure Proposed Procedure: jeff - Anesthesia/Transfusion/Family Hx Anesthesia History: No Prior Anesthesia Family History of Anesthesia Reaction: No Transfusion History: No Prior Transfusion(s) - Review of Systems General: Fever (99.1 last night) Pulmonary: No Symptoms Cardiovascular: No Symptoms Gastrointestinal: No Symptoms Neurological: No Symptoms Other: Reports: None - Physical Assessment Vital Signs: Last Vital Signs Temp 99.2 F 08/20/19 13:00 Pulse Resp 18 08/20/19 13:00 BP 142/88 H 08/20/19 13:00 Pulse Ox 98 08/20/19 13:00 Height: 5 ft 3 in Weight: 84.368 kg ASA Class: 2 Mental Status: Alert & Oriented x3 Airway Class: Mallampati = 1 Dentition: Reports: Normal Dentition Thyro-Mental Finger Breadths: 3 Mouth Opening Finger Breadths: 3 ROM/Head Extension: Full Lungs: Clear to Auscultation, Normal Respiratory Effort Cardiovascular: Regular Rate, Regular Rhythm - Lab Values: Laboratory Last Values WBC 9.51 K/mm3 (3.98-10.04) 08/20/19 11:15 RBC 4.00 M/mm3 (3.98-5.22) 08/20/19 11:15 Hgb 10.5 gm/dl (11.2-15.7) L 08/20/19 11:15 Hct 32.8 % (34.1-44.9) L 08/20/19 11:15 MCV 82.0 fl (79.4-94.8) 08/20/19 11:15 MCH 26.3 pg (25.6-32.2) 08/20/19 11:15 MCHC 32.0 g/dl (32.2-35.5) L 08/20/19 11:15 RDW Std Deviation 47.0 fL (36.4-46.3) H 08/20/19 11:15 Plt Count 152 K/mm3 (182-369) L 08/20/19 11:15 MPV 11.1 fl (9.4-12.3) 08/20/19 11:15 Neut % (Auto) 66.6 % (34.0-71.1) 08/20/19 11:15 Lymph % (Auto) 22.5 % (19.3-51.7) 08/20/19 11:15 [place] % (Auto) 8.6 % (4.7-12.5) 08/20/19 11:15 Eos % (Auto) 0.8 (0.7-5.8) 08/20/19 11:15 Baso % (Auto) 0.2 % (0.1-1.2) 08/20/19 11:15 Neut # (Auto) 6.33 K/mm3 (1.56-6.13) H 08/20/19 11:15 Lymph # (Auto) 2.14 K/mm3 (1.18-3.74) 08/20/19 11:15 [place] # (Auto) 0.82 K/mm3 (0.24-0.36) H 08/20/19 11:15 Eos # (Auto) 0.08 K/mm3 (0.04-0.36) 08/20/19 11:15 Baso # (Auto) 0.02 K/mm3 (0.01-0.08) 08/20/19 11:15 Manual Slide Review Abnormal smear 08/20/19 11:15 Sodium 138 mEq/L (136-145) 08/20/19 11:15 Potassium 3.4 mEq/L (3.5-5.1) L 08/20/19 11:15 Chloride 106 mEq/L (98-107) 08/20/19 11:15 Carbon Dioxide 20 mEq/L (21-32) L 08/20/19 11:15 Anion Gap 15.4 (5-15) H 08/20/19 11:15 BUN 4 mg/dL (7-18) L 08/20/19 11:15 Creatinine 0.6 mg/dL (0.55-1.02) 08/20/19 11:15 Est Cr Clr Drug Dosing TNP 08/20/19 11:15 Estimated GFR (MDRD) > 60 mL/min (>60) 08/20/19 11:15 BUN/Creatinine Ratio 6.7 (14-18) L 08/20/19 11:15 Glucose 85 mg/dL (74-106) 08/20/19 11:15 Calcium 8.9 mg/dL (8.5-10.1) 08/20/19 11:15 Total Bilirubin 0.3 mg/dL (0.2-1.0) 08/20/19 11:15 AST 14 U/L (15-37) L 08/20/19 11:15 ALT 14 U/L (14-59) 08/20/19 11:15 Alkaline Phosphatase 78 U/L (46-116) 08/20/19 11:15 Total Protein 6.4 g/dl (6.4-8.2) 08/20/19 11:15 Albumin 2.7 g/dl (3.4-5.0) L 08/20/19 11:15 Globulin 3.7 gm/dL 08/20/19 11:15 Albumin/Globulin Ratio 0.7 (1-2) L 08/20/19 11:15 Ur Random Creatinine 80.5 mg/dL (30.0-125.0) 08/20/19 10:55 U Random Total Protein 19.6 mg/dL (0.0-11.8) H 08/20/19 10:55 Protein/Creatinin Ratio 243.5 mg/g (0-149) H 08/20/19 10:55 Urine Opiates Screen Negative (JUPQKR=516) 08/20/19 10:55 Ur Buprenorphine Scrn Negative (CUTOFF=10) 08/20/19 10:55 Ur Oxycodone Screen Negative (FOS8AS=760) 08/20/19 10:55 Urine Methadone Screen Negative (UNFGPV=468) 08/20/19 10:55 Ur Propoxyphene Screen Negative (CCFROX=796) 08/20/19 10:55 Ur Barbiturates Screen Negative (FSWVBA=838) 08/20/19 10:55 Ur Tricyclics Screen Negative (NBFPPP=595) 08/20/19 10:55 Ur Phencyclidine Scrn Negative (CUTOFF=25) 08/20/19 10:55 Ur Amphetamine Screen Negative (VLXGBX=904) 08/20/19 10:55 U Methamphetamines Scrn Negative (POHYWV=482) 08/20/19 10:55 U Benzodiazepines Scrn Negative (WJMSWO=829) 08/20/19 10:55 U Cocaine Metab Screen Negative (EUYJWS=653) 08/20/19 10:55 U Marijuana (THC) Screen Negative (CUTOFF=50) 08/20/19 10:55 RPR Non-reactive (NONREACTIVE) 08/20/19 11:15 SARS-CoV-2 RNA (RT-PCR) Negative (NEGATIVE) 08/20/19 10:57 - Allergies Allergies/Adverse Reactions: Allergies Allergy/AdvReac Type Severity Reaction Status Date / Time No Known Allergies Allergy Verified 08/20/19 10:59 - Acknowledgements Anesthesia Type Planned: Epidural Pt an Appropriate Candidate for the Planned Anesthesia: Yes Alternatives and Risks of Anesthesia Discussed w Pt/Guardian: Yes Pt/Guardian Understands and Agrees with Anesthesia Plan: Yes PreAnesthesia Questionnaire - Past Health History Medical/Surgical History: Denies Medical/Surgical History HEENT History: Reports: None Cardiovascular History: Reports: None Respiratory History: Reports: Asthma (not used inhaler this year yet) Gastrointestinal History: Reports: GERD (with preg) [employer] History: Reports: : 1 (37 weeks) Para: 0 Musculoskeletal History: Reports: None Neurological History: Reports: None Psychiatric History: Reports: None Endocrine/Metabolic History: Reports: None Hematologic History: Reports: None Immunologic History: Reports: None Dermatologic History: Reports: None - Infectious Disease History Infectious Disease History: Reports: Influenza - Past Surgical History Head Surgeries/Procedures: Reports: None - SUBSTANCE USE Smoking Status *Q: Former Smoker Tobacco Use Within Last Twelve Months: Cigarettes Second Hand Smoke Exposure: No Days Per Week of Alcohol Use: 0 Date of Last Drink: 09/19/18 Recreational Drug Use History: Yes Recreational Drug Type: Reports: Marijuana/Hashish Recreational Drug Last Use: dec 2018 - HOME MEDS Home Medications: Home Meds Albuterol Sulfate [Albuterol Sulfate Hfa] 18 gm IH Q6H PRN #1 hfa.[email or web address] 04/26/18 [Rx] Azithromycin [Zithromax] 250 mg PO DAILY #6 tab 04/26/18 [Rx] - CURRENT (IN HOUSE) MEDS Current Meds: Current Medications Acetaminophen (Tylenol) 650 mg PO Q6H PRN PRN Reason: Pain (Mild 1-3) and fever Last Admin: 08/21/19 04:32 Dose: 650 mg Documented by: Diphenhydramine HCl (Benadryl) 25 mg IVPUSH Q6H PRN PRN Reason: pruritis Ephedrine Sulfate (Ephedrine Sulfate) 5 mg IVPUSH ASDIRECTED PRN PRN Reason: Hypotension Fentanyl (Sublimaze) 100 mcg EPIDUR Q3H PRN PRN Reason: Pain Last Admin: 08/21/19 09:06 Dose: 100 mcg Documented by: Fentanyl/Bupivacaine HCl (Fentanyl/Bupivacaine/Ns 2 Mcg-0.125% 100 Ml) 100 ml EPIDUR ASDIRECTED PRN PRN Reason: Pain Last Admin: 08/21/19 09:06 Dose: 100 ml Documented by: Lactated Ringer's (Ringers, Lactated) 1,000 mls @ 40 mls/hr IV ASDIRECTED KACEY Last Admin: 08/21/19 09:08 Dose: 40 mls/hr Documented by: Lactated Ringer's (Ringers, Lactated) 1,000 mls @ 100 mls/hr IV ASDIRECTED KACEY Oxytocin/Lactated Ringer's (Pitocin In Lr 10 Units/1,000 Ml) 10 unit in 1,000 mls @ 100 mls/hr IV .CONTINUOUS KACEY Ampicillin Sodium 1 gm/ Sodium (Chloride) 100 mls @ 200 mls/hr IV Q4H KACEY Last Admin: 08/21/19 08:50 Dose: 200 mls/hr Documented by: Oxytocin/Lactated Ringer's (Pitocin In Lr 10 Units/1,000 Ml) 10 unit in 1,000 mls @ 12 mls/hr IV TITRATE KACEY; Protocol Last Titration: 08/21/19 07:31 Dose: 8 munits/min, 48 mls/hr Documented by: Nalbuphine HCl (Nubain) 10 mg IVPUSH Q2H PRN PRN Reason: Pain Sodium Chloride (Saline Flush) 10 ml FLUSH ASDIRECTED PRN PRN Reason: Keep Vein Open Discontinued Medications Ampicillin Sodium (Ampicillin) Confirm Administered Dose 2 gm IV .STK-MED ONE Stop: 08/21/19 04:22 Last Admin: 08/21/19 04:33 Dose: Not Given Documented by: Ampicillin Sodium 2 gm/ Sodium (Chloride) 100 mls @ 200 mls/hr IV ONETIME ONE Stop: 08/20/19 11:59 Last Admin: 08/21/19 04:25 Dose: 200 mls/hr Documented by: Ampicillin Sodium 1 gm/ Sodium (Chloride) 100 mls @ 200 mls/hr IV Q4H KACEY Last Admin: 08/21/19 04:33 Dose: Not Given Documented by: Misoprostol (Cytotec) 25 mcg VAG Q4H PRN PRN Reason: cervical ripening Last Admin: 08/20/19 19:34 Dose: 25 mcg Documented by: Misoprostol (Cytotec) Confirm Administered Dose 25 mcg .ROUTE .STK-MED ONE Stop: 08/20/19 23:29 Last Admin: 08/21/19 06:07 Dose: Not Given Documented by: Misoprostol (Cytotec) 25 mcg VAG Q4H KACEY Stop: 08/21/19 15:31 Last Admin: 08/21/19 05:07 Dose: Not Given Documented by:
--- NOTE | 2019-08-21 15:15 | PCM.DEL ---
L & D Note - General Info Date of Service: 08/21/19 Mother's Due Date: 09/06/19 - Delivery Note Labor: Induced by ARM, Induced by Oxytocin Cervical Ripening Method: Balloon Device (16 [place] Barillas bulb filled with 50 mL of sterile saline), Misoprostil Delivery Outcome: Livebirth Delivery Method: Spontaneous Vaginal Delivery-Single Presentation: Direct Occiput Posterior Nuchal Cord: None Prep: Povidone-Iodine (Betadine Anesthesia Type: Epidural Amniotic Fluid Description: Clear Episiotomy Type: None Laceration: Periurethral (abrasions), Vaginal (abrasions) Placenta: Intact, Spontaneous Cord: 3 Vessels Estimated Blood Loss: 300 Delivery Comments (Free Text/Narrative):: Stage I: Ricardo Daley was admitted for medically indicated induction of labor for gestational hypertension. Patient was seen in the clinic and noted to have elevated blood pressures into the 140s/80s that had been persistent over the last week. On admission her cervix was dilated to 0.5 cm. She was GBS positive and she had a delay of starting of her antibiotics due to anticipated extended length of induction. She was started on Cytotec 25 mcg vaginally for cervical ripening. After she received the second dose she had a 16 Armenian transcervical Barillas bulb placed under direct visualization with speculum and ring forceps. The Barillas bulb was filled with 50 mL of sterile saline. She was continued on Cytotec 25 mcg vaginally for ongoing cervical ripening and received a total of 4 doses of Cytotec. The Barillas bulb came out in the morning of induction day #2 and she was found to be 4 to 5 cm at that time. She was started on ampicillin after the Barillas bulb came out and received a total of 3 doses prior to delivery. She was started on Pitocin for induction of labor. She had artificial rupture membranes with return of clear fluid. She was given an epidural for anesthesia. She progressed to complete and pushing. Stage II: On 08/21/2019 she had a normal vaginal delivery of a live female at 14:30. Apgars of 8 & 9. Weight of 2570 g (5 Lbs 0.7 oz). Length of 19.5 inches. There was no nuchal cord. was delivered in direct OP position. The cord was doubly clamped and cut by father the . was placed on mother's abdomen. Stage III: She had a spontaneous delivery of an intact placenta in Steve presentation. Three vessel cord. She was given pitocin and fundal massage. She had vaginal abrasions as well as periurethral skin abrasions. These were hemostatic and not repaired. Mom and baby were stable to recovery. EBL of 300 mL. William Walters MD 3:11 PM 08/21/2019 Induction Criteria - Duncan Score Duncan Score Dilation: 1-2 cm Duncan Score Effacement: 0-30% Duncan Score Infant's Station: -3 Duncan Score Consistency: Soft Duncan Score Cervix Position: Posterior Duncan Score Total: 3 Duncan Score Presenting Part: Reports: Cephalic - Induction Gestational Age >/= 39 wks: No Medical Indication: Gestational hypertension Estimated Pelvis: Reports: Adequate Reassuring Monitoring Strip: Yes Absence of Tachy Systole: Yes - Augmentation Estimated Pelvis: Reports: Adequate Weight Estimated:: Reports: AGA Reassuring Monitoring Strip: Yes Absence of Tachy Systole: Yes - General Info Date of Service: 08/21/19 - Patient Data Vitals - Most Recent: Last Vital Signs Temp 37.3 C 08/20/19 13:00 Pulse Resp 18 08/20/19 13:00 BP 142/88 H 08/20/19 13:00 Pulse Ox 98 08/20/19 13:00 Weight - Most Recent: 84.368 kg Lab Results Last 24 Hours: Laboratory Results - last 24 hr 08/20/19 08/20/19 Range/Units 10:55 11:15 Urine Opiates Screen Negative (PYAAOK=996) Ur Buprenorphine Scrn Negative (CUTOFF=10) Ur Oxycodone Screen Negative (KFL6QO=534) Urine Methadone Screen Negative (DGMUJN=355) Ur Propoxyphene Screen Negative (ADYCJL=049) Ur Barbiturates Screen Negative (TMIPAN=262) Ur Tricyclics Screen Negative (FBQOHA=256) Ur Phencyclidine Scrn Negative (CUTOFF=25) Ur Amphetamine Screen Negative (IMPYOR=330) U Methamphetamines Scrn Negative (NPFEZV=318) U Benzodiazepines Scrn Negative (KMAXWY=734) U Cocaine Metab Screen Negative (YXTZPC=923) U Marijuana (THC) Screen Negative (CUTOFF=50) RPR Non-reactive (NONREACTIVE) Med Orders - Current: Current Medications Acetaminophen (Tylenol) 650 mg PO Q6H PRN PRN Reason: Pain (Mild 1-3) and fever Last Admin: 08/21/19 04:32 Dose: 650 mg Documented by: Diphenhydramine HCl (Benadryl) 25 mg IVPUSH Q6H PRN PRN Reason: pruritis Ephedrine Sulfate (Ephedrine Sulfate) 5 mg IVPUSH ASDIRECTED PRN PRN Reason: Hypotension Fentanyl (Sublimaze) 100 mcg EPIDUR Q3H PRN PRN Reason: Pain Last Admin: 08/21/19 09:06 Dose: 100 mcg Documented by: Fentanyl/Bupivacaine HCl (Fentanyl/Bupivacaine/Ns 2 Mcg-0.125% 100 Ml) 100 ml EPIDUR ASDIRECTED PRN PRN Reason: Pain Last Admin: 08/21/19 09:06 Dose: 100 ml Documented by: Lactated Ringer's (Ringers, Lactated) 1,000 mls @ 40 mls/hr IV ASDIRECTED KACEY Last Admin: 08/21/19 09:08 Dose: 40 mls/hr Documented by: Lactated Ringer's (Ringers, Lactated) 1,000 mls @ 100 mls/hr IV ASDIRECTED KACEY Oxytocin/Lactated Ringer's (Pitocin In Lr 10 Units/1,000 Ml) 10 unit in 1,000 mls @ 100 mls/hr IV .CONTINUOUS KACEY Ampicillin Sodium 1 gm/ Sodium (Chloride) 100 mls @ 200 mls/hr IV Q4H KACEY Last Admin: 08/21/19 12:39 Dose: 200 mls/hr Documented by: Oxytocin/Lactated Ringer's (Pitocin In Lr 10 Units/1,000 Ml) 10 unit in 1,000 mls @ 12 mls/hr IV TITRATE KACEY; Protocol Last Titration: 08/21/19 11:32 Dose: 12 munits/min, 72 mls/hr Documented by: Nalbuphine HCl (Nubain) 10 mg IVPUSH Q2H PRN PRN Reason: Pain Sodium Chloride (Saline Flush) 10 ml FLUSH ASDIRECTED PRN PRN Reason: Keep Vein Open Discontinued Medications Ampicillin Sodium (Ampicillin) Confirm Administered Dose 2 gm IV .Matchmove-MED ONE Stop: 08/21/19 04:22 Last Admin: 08/21/19 04:33 Dose: Not Given Documented by: Ampicillin Sodium 2 gm/ Sodium (Chloride) 100 mls @ 200 mls/hr IV ONETIME ONE Stop: 08/20/19 11:59 Last Admin: 08/21/19 04:25 Dose: 200 mls/hr Documented by: Ampicillin Sodium 1 gm/ Sodium (Chloride) 100 mls @ 200 mls/hr IV Q4H KACEY Last Admin: 08/21/19 04:33 Dose: Not Given Documented by: Misoprostol (Cytotec) 25 mcg VAG Q4H PRN PRN Reason: cervical ripening Last Admin: 08/20/19 19:34 Dose: 25 mcg Documented by: Misoprostol (Cytotec) Confirm Administered Dose 25 mcg .ROUTE .STK-MED ONE Stop: 08/20/19 23:29 Last Admin: 08/21/19 06:07 Dose: Not Given Documented by: Misoprostol (Cytotec) 25 mcg VAG Q4H KACEY Stop: 08/21/19 15:31 Last Admin: 08/21/19 05:07 Dose: Not Given Documented by: - Problem List & Annotations (1) 37 weeks gestation of SNOMED Code(s): 51095923 Code(s): Z3A.37 - 37 WEEKS GESTATION OF Status: Acute Current Visit: Yes (2) Gestational hypertension SNOMED Code(s): 303971791 Code(s): O13.9 - GESTATIONAL HTN W/O SIGNIFICANT PROTEINURIA, UNSP TRIMESTER Status: Acute Current Visit: Yes (3) Asthma SNOMED Code(s): 891746555 Code(s): J45.909 - UNSPECIFIED ASTHMA, UNCOMPLICATED Status: Acute Current Visit: Yes (4) ancestry requiring population-specific genetic screening SNOMED Code(s): 90856251, 124049869, 351368700 Code(s): Z13.79 - ENCNTR FOR OTH SCREENING FOR GENETIC AND CHROMSOML ANOMALIES Status: Acute Current Visit: Yes (5) GBS (group B Streptococcus carrier), +RV culture, currently SNOMED Code(s): 3451722591653, 604794622, 9237691135938 Code(s): O99.820 - STREPTOCOCCUS B CARRIER STATE COMPLICATING Status: Acute Current Visit: Yes (6) Vaginal delivery SNOMED Code(s): 260285369 Code(s): O80 - ENCOUNTER FOR FULL-TERM UNCOMPLICATED DELIVERY Status: Acute Current Visit: Yes - Problem List Review Problem List Initiated/Reviewed/Updated: Yes - My Orders Last 24 Hours: My Active Orders 08/21/19 05:45 Oxytocin/Lactated Ringers [Pitocin in LR 10 Units/1,000 ML] 10 unit in 1,000 ml IV TITRATE 08/21/19 08:30 Ampicillin 1 gm Sodium Chloride 0.9% [Normal Saline] 100 ml IV Q4H 08/21/19 14:55 Patient Status Manage Transfer [TRANSFER] Routine - Plan Plan:: Admit to inpatient following normal spontaneous vaginal delivery Continue Pitocin per unit protocol following delivery of placenta and lactated Ringer's until tolerating regular diet Regular diet Vitals per unit routine Ibuprofen and Tylenol for pain control Assist with breast-feeding as needed Continue to monitor lochia Monitor for any signs or symptoms of severe features of preeclampsia. Monitoring of blood pressures to ensure that she does not have ongoing elevations that would need treatment higher than 150/100 Anticipate discharge home on day #2 William Wlaters MD 3:11 PM 08/21/2019
[2019-08-21] MEDS ORDERED: Acetaminophen 325 MG Tab PO PRN (17:26)
[2019-08-21] MEDS ORDERED: Docusate Sodium 100 MG Cap PO PRN (17:26)
[2019-08-21] MEDS ORDERED: Hydrocortisone Acetate 25 MG Supp RECTAL PRN (17:26)
[2019-08-21] MEDS ORDERED: Magnesium Hydroxide 400 MG/5 ML Susp 30 ML Cup PO PRN (17:26)
[2019-08-21] MEDS ORDERED: Benzocaine/Menthol 20%-0.5% Spray 56 GM Canister TOP PRN (17:26)
[2019-08-21] MEDS ORDERED: Witch Hazel Medicated Pads 40/Jar TOP PRN (17:26)
[2019-08-21] MEDS: Ibuprofen 600 MG Tab PO PRN (17:58)
[2019-08-22] MEDS ORDERED: Bupivacaine 0.25% 10 ML SDV ONE
[2019-08-22] MEDS ORDERED: Ferrous Sulfate 324 MG Tab.EC PO SCH (07:00)
--- NOTE | 2019-08-22 07:26 | PCM48HPAN ---
Post Anesthesia Note - EVALUATION WITHIN 48HRS OF ANESTHETIC Vital Signs in Normal Range: Yes Patient Participated in Evaluation: Yes Respiratory Function Stable: Yes Airway Patent: Yes Cardiovascular Function Stable: Yes Hydration Status Stable: Yes Pain Control Satisfactory: Yes Nausea and Vomiting Control Satisfactory: Yes Mental Status Recovered: Yes Vital Signs: Last Vital Signs Temp 37.1 C 08/22/19 00:35 Pulse 86 08/22/19 00:35 Resp 15 08/22/19 00:35 BP 111/54 L 08/22/19 00:35 Pulse Ox 98 08/22/19 00:35
[2019-08-22] MEDS ORDERED: Prenatal Multivitamin with Calcium/Folic Acid/Iron Tab PO SCH (09:00)
[2019-08-22] MEDS: Ibuprofen 600 MG Tab PO PRN (09:45)
--- NOTE | 2019-08-22 10:13 | PCM.SN.2 ---
- Free Text/Narrative Note: Post Progress Note PPD #1 Subjective: Doing well overall. Ambulating without difficulty. Reports that her left hip pain is improving and is getting better with increased amounts of ambulation and rest. Lochia minimal. Voiding without difficulty. Tolerating regular diet without nausea or vomiting. Reports that her nausea and vomiting improved last evening after she was able to eat a small amount of regular diet. Pain controlled with oral medications. Bottlefeeding with minimal difficulty. Objective: Vitals: Vital Signs - 24 hr 08/21/19 08/21/19 08/21/19 17:22 17:58 18:30 Temperature 37.5 C 37.5 C Temperature [ 37.3 C Temporal] Pulse, 87 Peripheral Respiratory 16 Rate Blood Pressure 136/84 O2 Sat by Pulse 99 Oximetry 08/21/19 08/22/19 08/22/19 20:13 00:35 03:46 Temperature 37.4 C 37.1 C 37.1 C Temperature [ Temporal] Pulse, 82 86 78 Peripheral Respiratory 15 15 15 Rate Blood Pressure 141/89 H 111/54 L 133/68 O2 Sat by Pulse 98 98 97 Oximetry 08/22/19 08:55 Temperature 36.8 C Temperature [ Temporal] Pulse, 82 Peripheral Respiratory 16 Rate Blood Pressure 127/92 H O2 Sat by Pulse 100 Oximetry Physical Exam General: Alert and oriented, no acute distress Lungs: Clear to auscultation bilaterally Heart: Regular rate and rhythm Abdomen: Soft, minimal appropriate tenderness, non-distended, fundus midline, nontender, and at the umbilicus Extremities: Trace edema in bilateral lower extremities to mid shins Laboratory Tests 08/20/19 08/20/19 08/20/19 Range/Units 10:55 10:55 10:57 WBC (3.98-10.04) K/mm3 RBC (3.98-5.22) M/mm3 Hgb (11.2-15.7) gm/dl Hct (34.1-44.9) % MCV (79.4-94.8) fl MCH (25.6-32.2) pg MCHC (32.2-35.5) g/dl RDW Std Deviation (36.4-46.3) fL Plt Count (182-369) K/mm3 MPV (9.4-12.3) fl Neut % (Auto) (34.0-71.1) % Lymph % (Auto) (19.3-51.7) % [place] % (Auto) (4.7-12.5) % Eos % (Auto) (0.7-5.8) Baso % (Auto) (0.1-1.2) % Neut # (Auto) (1.56-6.13) K/mm3 Lymph # (Auto) (1.18-3.74) K/mm3 [place] # (Auto) (0.24-0.36) K/mm3 Eos # (Auto) (0.04-0.36) K/mm3 Baso # (Auto) (0.01-0.08) K/mm3 Manual Slide Review Sodium (136-145) mEq/L Potassium (3.5-5.1) mEq/L Chloride (98-107) mEq/L Carbon Dioxide (21-32) mEq/L Anion Gap (5-15) BUN (7-18) mg/dL Creatinine (0.55-1.02) mg/dL Est Cr Clr Drug Dosing Estimated GFR (MDRD) (>60) mL/min BUN/Creatinine Ratio (14-18) Glucose (74-106) mg/dL Calcium (8.5-10.1) mg/dL Total Bilirubin (0.2-1.0) mg/dL AST (15-37) U/L ALT (14-59) U/L Alkaline Phosphatase (46-116) U/L Total Protein (6.4-8.2) g/dl Albumin (3.4-5.0) g/dl Globulin gm/dL Albumin/Globulin Ratio (1-2) Ur Random Creatinine 80.5 (30.0-125.0) mg/dL U Random Total Protein 19.6 H (0.0-11.8) mg/dL Protein/Creatinin Ratio 243.5 H (0-149) mg/g Urine Opiates Screen Negative (JVLJQH=014) Ur Buprenorphine Scrn Negative (CUTOFF=10) Ur Oxycodone Screen Negative (OAX5KO=473) Urine Methadone Screen Negative (JRWPMQ=064) Ur Propoxyphene Screen Negative (FKMSPM=243) Ur Barbiturates Screen Negative (AAVWCP=190) Ur Tricyclics Screen Negative (TDLPBV=696) Ur Phencyclidine Scrn Negative (CUTOFF=25) Ur Amphetamine Screen Negative (GBFWHE=250) U Methamphetamines Scrn Negative (RUSXIZ=337) U Benzodiazepines Scrn Negative (SPAGCT=548) U Cocaine Metab Screen Negative (URGEZQ=921) U Marijuana (THC) Screen Negative (CUTOFF=50) RPR (NONREACTIVE) SARS-CoV-2 RNA (RT-PCR) Negative (NEGATIVE) 08/20/19 08/20/19 08/20/19 Range/Units 11:15 11:15 11:15 WBC 9.51 (3.98-10.04) K/mm3 RBC 4.00 (3.98-5.22) M/mm3 Hgb 10.5 L (11.2-15.7) gm/dl Hct 32.8 L (34.1-44.9) % MCV 82.0 (79.4-94.8) fl MCH 26.3 (25.6-32.2) pg MCHC 32.0 L (32.2-35.5) g/dl RDW Std Deviation 47.0 H (36.4-46.3) fL Plt Count 152 L (182-369) K/mm3 MPV 11.1 (9.4-12.3) fl Neut % (Auto) 66.6 (34.0-71.1) % Lymph % (Auto) 22.5 (19.3-51.7) % [place] % (Auto) 8.6 (4.7-12.5) % Eos % (Auto) 0.8 (0.7-5.8) Baso % (Auto) 0.2 (0.1-1.2) % Neut # (Auto) 6.33 H (1.56-6.13) K/mm3 Lymph # (Auto) 2.14 (1.18-3.74) K/mm3 Dodge # (Auto) 0.82 H (0.24-0.36) K/mm3 Eos # (Auto) 0.08 (0.04-0.36) K/mm3 Baso # (Auto) 0.02 (0.01-0.08) K/mm3 Manual Slide Review Abnormal smear Sodium 138 (136-145) mEq/L Potassium 3.4 L (3.5-5.1) mEq/L Chloride 106 (98-107) mEq/L Carbon Dioxide 20 L (21-32) mEq/L Anion Gap 15.4 H (5-15) BUN 4 L (7-18) mg/dL Creatinine 0.6 (0.55-1.02) mg/dL Est Cr Clr Drug Dosing TNP Estimated GFR (MDRD) > 60 (>60) mL/min BUN/Creatinine Ratio 6.7 L (14-18) Glucose 85 (74-106) mg/dL Calcium 8.9 (8.5-10.1) mg/dL Total Bilirubin 0.3 (0.2-1.0) mg/dL AST 14 L (15-37) U/L ALT 14 (14-59) U/L Alkaline Phosphatase 78 (46-116) U/L Total Protein 6.4 (6.4-8.2) g/dl Albumin 2.7 L (3.4-5.0) g/dl Globulin 3.7 gm/dL Albumin/Globulin Ratio 0.7 L (1-2) Ur Random Creatinine (30.0-125.0) mg/dL U Random Total Protein (0.0-11.8) mg/dL Protein/Creatinin Ratio (0-149) mg/g Urine Opiates Screen (JBGMMI=718) Ur Buprenorphine Scrn (CUTOFF=10) Ur Oxycodone Screen (DWR8SA=298) Urine Methadone Screen (YWSETK=262) Ur Propoxyphene Screen (LHWSXR=144) Ur Barbiturates Screen (LTTPAK=093) Ur Tricyclics Screen (LBZKGC=502) Ur Phencyclidine Scrn (CUTOFF=25) Ur Amphetamine Screen (BUEOIF=081) U Methamphetamines Scrn (GMPRHF=722) U Benzodiazepines Scrn (PDNUIL=683) U Cocaine Metab Screen (MFASKL=292) U Marijuana (THC) Screen (CUTOFF=50) RPR Non-reactive (NONREACTIVE) SARS-CoV-2 RNA (RT-PCR) (NEGATIVE) ASSESSMENT: 19-year-old female -0-0-1 s/p normal vaginal delivery PPD #1, complicated by gestational hypertension, GBS positive with 3 doses prior to delivery, asthma, marijuana use in and ancestry PLAN: Doing well Bottlefeeding with minimal difficulty. Assist as needed Lochia minimal. Continue to monitor for appropriate lochia. Continue routine care Anticipate discharge home tomorrow William Walters MD 10:11 AM 08/22/2019
[2019-08-23] MEDS: Ibuprofen 600 MG Tab PO PRN (00:16)
--- NOTE | 2019-08-23 09:58 | PCM.SN.2 ---
- Free Text/Narrative Note: Post Progress Note PPD #2 Subjective: Doing well overall. Ambulating without difficulty. Lochia minimal. Voiding without difficulty. Tolerating regular diet without nausea or vomiting. Pain controlled with oral medications. Bottlefeeding with minimal difficulty. Denies any headaches, vision changes or epigastric pain. Objective: Vitals: Vital Signs - 24 hr 08/22/19 08/22/19 08/23/19 17:15 20:52 03:18 Temperature 36.7 C 36.9 C 36.6 C Pulse, 69 75 60 Peripheral Respiratory 16 14 13 Rate Blood Pressure 143/75 H 121/93 H 143/82 H O2 Sat by Pulse 100 99 98 Oximetry Physical Exam General: Alert and oriented, no acute distress Lungs: Clear to auscultation bilaterally Heart: Regular rate and rhythm Abdomen: Soft, minimal appropriate tenderness, non-distended, fundus midline, nontender, and at the umbilicus Extremities: Trace edema in bilateral lower extremities to mid shins ASSESSMENT: 19-year-old female -0-0-1 s/p normal vaginal delivery PPD #2, complicated by gestational hypertension, GBS positive with 3 doses prior to delivery, asthma, marijuana use in and ancestry PLAN: Doing well Bottlefeeding with minimal difficulty. Assist as needed Lochia minimal. Continue to monitor for appropriate lochia. Continue routine care Patient continues to have mild range blood pressures but none of the blood pressures are in the range that would necessitate treatment at this time. Patient to have close follow-up in the office to continue to monitor her blood pressures after discharge. Discharge home today William Walters MD 9:56 AM 08/23/2019
--- NOTE | 2019-08-23 10:02 | PCM.DCSUM1 ---
Discharge Summary - Hospital Course Free Text/Narrative:: - General Info Date of Service: 08/21/19 Mother's Due Date: 09/06/19 - Delivery Note Labor: Induced by ARM, Induced by Oxytocin Cervical Ripening Method: Balloon Device (16 [place] Bar[place] bulb filled with 50 mL of sterile saline), Misoprostil Delivery Outcome: Livebirth Delivery Method: Spontaneous Vaginal Delivery-Single Presentation: Direct Occiput Posterior Nuchal Cord: None Prep: Povidone-Iodine (Betadine Anesthesia Type: Epidural Amniotic Fluid Description: Clear Episiotomy Type: None Laceration: Periurethral (abrasions), Vaginal (abrasions) Placenta: Intact, Spontaneous Cord: 3 Vessels Estimated Blood Loss: 300 Delivery Comments (Free Text/Narrative):: Stage I: Ricardo Daley was admitted for medically indicated induction of labor for gestational hypertension. Patient was seen in the clinic and noted to have elevated blood pressures into the 140s/80s that had been persistent over the last week. On admission her cervix was dilated to 0.5 cm. She was GBS positive and she had a delay of starting of her antibiotics due to anticipated extended length of induction. She was started on Cytotec 25 mcg vaginally for cervical ripening. After she received the second dose she had a 16 Canadian transcervical Barillas bulb placed under direct visualization with speculum and ring forceps. The Barillas bulb was filled with 50 mL of sterile saline. She was continued on Cytotec 25 mcg vaginally for ongoing cervical ripening and received a total of 4 doses of Cytotec. The Barillas bulb came out in the morning of induction day #2 and she was found to be 4 to 5 cm at that time. She was started on ampicillin after the Barillas bulb came out and received a total of 3 doses prior to delivery. She was started on Pitocin for induction of labor. She had artificial rupture membranes with return of clear fluid. She was given an epidural for anesthesia. She progressed to complete and pushing. Stage II: On 08/21/2019 she had a normal vaginal delivery of a live female at 14:30. Apgars of 8 & 9. Weight of 2570 g (5 Lbs 0.7 oz). Length of 19.5 inches. There was no nuchal cord. was delivered in direct OP position. The cord was doubly clamped and cut by father the infant. was placed on mother's abdomen. Stage III: She had a spontaneous delivery of an intact placenta in Steve presentation. Three vessel cord. She was given pitocin and fundal massage. She had vaginal abrasions as well as periurethral skin abrasions. These were hemostatic and not repaired. Mom and baby were stable to recovery. EBL of 300 mL. HPI Initial Comments: - General Info Date of Service: 08/21/19 Mother's Due Date: 09/06/19 - Delivery Note Labor: Induced by ARM, Induced by Oxytocin Cervical Ripening Method: Balloon Device (16 [place] Bar[place] bulb filled with 50 mL of sterile saline), Misoprostil Delivery Outcome: Livebirth Infant Delivery Method: Spontaneous Vaginal Delivery-Single Presentation: Direct Occiput Posterior Nuchal Cord: None Prep: Povidone-Iodine (Betadine Anesthesia Type: Epidural Amniotic Fluid Description: Clear Episiotomy Type: None Laceration: Periurethral (abrasions), Vaginal (abrasions) Placenta: Intact, Spontaneous Cord: 3 Vessels Estimated Blood Loss: 300 Delivery Comments (Free Text/Narrative):: Stage I: Ricardo Daley was admitted for medically indicated induction of labor for gestational hypertension. Patient was seen in the clinic and noted to have elevated blood pressures into the 140s/80s that had been persistent over the last week. On admission her cervix was dilated to 0.5 cm. She was GBS positive and she had a delay of starting of her antibiotics due to anticipated extended length of induction. She was started on Cytotec 25 mcg vaginally for cervical ripening. After she received the second dose she had a 16 Canadian transcervical Barillas bulb placed under direct visualization with speculum and ring forceps. The Barillas bulb was filled with 50 mL of sterile saline. She was continued on Cytotec 25 mcg vaginally for ongoing cervical ripening and received a total of 4 doses of Cytotec. The Barillas bulb came out in the morning of induction day #2 and she was found to be 4 to 5 cm at that time. She was started on ampicillin after the Barillas bulb came out and received a total of 3 doses prior to delivery. She was started on Pitocin for induction of labor. She had artificial rupture membranes with return of clear fluid. She was given an epidural for anesthesia. She progressed to complete and pushing. Stage II: On 08/21/2019 she had a normal vaginal delivery of a live female at 14:30. Apgars of 8 & 9. Weight of 2570 g (5 Lbs 0.7 oz). Length of 19.5 inches. There was no nuchal cord. was delivered in direct OP position. The cord was doubly clamped and cut by father the infant. was placed on mother's abdomen. Stage III: She had a spontaneous delivery of an intact placenta in Steve presentation. Three vessel cord. She was given pitocin and fundal massage. She had vaginal abrasions as well as periurethral skin abrasions. These were hemostatic and not repaired. Mom and baby were stable to recovery. EBL of 300 mL. Brief History: - General Info. Date of Service: 08/21/19. Mother's Due Date: 09/06/19. - Delivery Note. Labor: Induced by ARM, Induced by Oxytocin. Cervical Ripening Method: Balloon Device (16 [place] Barillas bulb filled with 50 mL of sterile saline), Misoprostil. Delivery Outcome: Livebirth. Infant Delivery Method: Spontaneous Vaginal Delivery-Single. Presentation: Direct Occiput Posterior. Nuchal Cord: None. Prep: Povidone-Iodine (Betadine. Anesthesia Type: Epidural. Amniotic Fluid Description: Clear. Episiotomy Type: None. Laceration: Periurethral (abrasions), Vaginal (abrasions). Placenta: Intact, Spontaneous. Cord: 3 Vessels. Estimated Blood Loss: 300. Delivery Comments (Free Text/Narrative):: Stage I: Ricardo Daley was admitted for medically indicated induction of labor for gestational hypertension. Patient was seen in the clinic and noted to have elevated blood pressures into the 140s/80s that had been persistent over the last week. On admission her cervix was dilated to 0.5 cm. She was GBS positive and she had a delay of starting of her antibiotics due to anticipated extended length of induction. She was started on Cytotec 25 mcg vaginally for cervical ripening. After she received the second dose she had a 16 Canadian transcervical Barillas bulb placed under direct visualization with speculum and ring forceps. The Barillas bulb was filled with 50 mL of sterile saline. She was continued on Cytotec 25 mcg vaginally for ongoing cervical ripening and received a total of 4 doses of Cytotec. The Barillas bulb came out in the morning of induction day #2 and she was found to be 4 to 5 cm at that time. She was started on ampicillin after the Barillas bulb came out and received a total of 3 doses prior to delivery. She was started on Pitocin for induction of labor. She had artificial rupture membranes with return of clear fluid. She was given an epidural for anesthesia. She progressed to complete and pushing. Stage II: On 08/21/2019 she had a normal vaginal delivery of a live female infant at 14:30. Apgars of 8 & 9. Weight of 2570 g (5 Lbs 0.7 oz). Length of 19.5 inches. There was no nuchal cord. was delivered in direct OP position. The cord was doubly clamped and cut by father the . Infant was placed on mother's abdomen. Stage III: She had a spontaneous delivery of an intact placenta in Steve presentation. Three vessel cord. She was given pitocin and fundal massage. She had vaginal abrasions as well as periurethral skin abrasions. These were hemostatic and not repaired. Mom and baby were stable to recovery. EBL of 300 mL. Diagnosis: Stroke: No - Discharge Data Discharge Date: 08/23/19 Discharge Disposition: Home, Self-Care 01 Condition: Good - Referral to Home Health Primary Care Physician: William Walters MD - Discharge Diagnosis/Problem(s) (1) 37 weeks gestation of SNOMED Code(s): 40880869 ICD Code: Z3A.37 - 37 WEEKS GESTATION OF Status: Acute Current Visit: Yes (2) Gestational hypertension SNOMED Code(s): 172480313 ICD Code: O13.9 - GESTATIONAL HTN W/O SIGNIFICANT PROTEINURIA, UNSP TRIMESTER Status: Acute Current Visit: Yes (3) Asthma SNOMED Code(s): 379836641 ICD Code: J45.909 - UNSPECIFIED ASTHMA, UNCOMPLICATED Status: Acute Current Visit: Yes (4) ancestry requiring population-specific genetic screening SNOMED Code(s): 94805185, 579819583, 993200530 ICD Code: Z13.79 - ENCNTR FOR OTH SCREENING FOR GENETIC AND CHROMSOML ANOMALIES Status: Acute Current Visit: Yes (5) GBS (group B Streptococcus carrier), +RV culture, currently SNOMED Code(s): 8187228355866, 796041704, 0848303895959 ICD Code: O99.820 - STREPTOCOCCUS B CARRIER STATE COMPLICATING Status: Acute Current Visit: Yes (6) Vaginal delivery SNOMED Code(s): 629110402 ICD Code: O80 - ENCOUNTER FOR FULL-TERM UNCOMPLICATED DELIVERY Status: Acute Current Visit: Yes - Patient Summary/Data Complications: None Consults: None Hospital Course: Ricardo Daley was admitted for medically indicated induction of labor for gestational hypertension. On admission her cervix was dilated to 0.5 cm. She was GBS positive and antibiotics were delayed until she was in more advanced labor.she was started on Cytotec 25 mcg vaginally for cervical ripening and received a total of 4 doses of Cytotec. She had a transcervical 16 [place] Barillas bulb placed that was filled with 50 mL of sterile saline. She was given pitocin for augmentation. She was given an epidural for anesthesia. She had artificial rupture of membranes with clear fluid. She progressed to complete and began pushing. On 08/21/2019 she had a normal vaginal delivery of a live female infant at 14:30. Apgars of 8 and 9. Weight of 2570 g (5 pounds 0.7 ounces). Her course was uneventful. Her pain was well controlled and she had minimal lochia. She was ambulating, tolerating a regular diet and voiding normally. She was bottlefeeding with minimal difficulty. She was afebrile and her hematocrit was 32.8 on admission. She desired to be discharged home on the morning of PPD #2. Her blood type is O+. - Patient Instructions Diet: Regular Diet as Tolerated Activity: Apply Ice, As Tolerated Activity, Other: Nothing in the vagina for 6 weeks Driving: May Drive Today Showering/Bathing: May Shower Notify Provider of: Fever, Increased Pain, Swelling and Redness, Drainage, Nausea and/or Vomiting Other/Special Instructions: Please contact your physician's office if you have heavy vaginal bleeding enough to soak a pad in less than an hour for several hours. Monitor for any signs of an infection in the breasts with severe pain or redness of the breast. Monitor for any signs of severe features of preeclampsia including severe headache, spots in your vision or flashes of light in your vision or pain in the top part of your stomach. - Discharge Plan *PRESCRIPTION DRUG MONITORING PROGRAM REVIEWED*: Not Applicable *COPY OF PRESCRIPTION DRUG MONITORING REPORT IN PATIENT WOOD: Not Applicable Home Medications: Home Meds Albuterol Sulfate [Albuterol Sulfate Hfa] 18 gm IH Q6H PRN #1 [id number] 04/26/18 [Rx] Acetaminophen [Tylenol] 650 mg PO Q6H PRN tablet 08/23/19 [Rx] Benzocaine/Menthol [Dermoplast Pain Relief [place]] 1 spray TOP ASDIRECTED PRN canister 08/23/19 [Rx] Docusate Sodium [Colace] 100 mg PO BID PRN cap 08/23/19 [Rx] Ferrous Sulfate 324 mg PO WITHBREAKFAST tab.ec 08/23/19 [Rx] Hydrocortisone Acetate [Anucort-HC] 25 mg RECTAL BID PRN supp 08/23/19 [Rx] Ibuprofen [Motrin] 600 mg PO Q6H PRN tablet 08/23/19 [Rx] Vit with Ca/FA/Iron [ Plus Iron] 1 each PO DAILY tablet 08/23/19 [Rx] josue Salas [Tucks] 1 pad TOP ASDIRECTED PRN pad 08/23/19 [Rx] Patient Handouts: Care of a Perineal Tear, Care After Vaginal Delivery Referrals: William Walters MD [Primary Care Provider] - (Follow-up in the office during the week of 08/24-08/28/2019) - Discharge Summary/Plan Comment DC Time >30 min.: No - Patient Data Vitals - Most Recent: Last Vital Signs Temp 36.6 C 08/23/19 03:18 Pulse 60 08/23/19 03:18 Resp 13 08/23/19 03:18 BP 143/82 H 08/23/19 03:18 Pulse Ox 98 08/23/19 03:18 Weight - Most Recent: 84.368 kg I&O - Last 24 hours: Intake & Output 08/22/19 08/23/19 08/23/19 22:59 06:59 14:59 Intake Total 320 Balance 320 Med Orders - Current: Current Medications Acetaminophen (Tylenol) 650 mg PO Q6H PRN PRN Reason: mild pain or fever Last Admin: 08/22/19 06:58 Dose: 650 mg Documented by: Benzocaine/Menthol (Dermoplast Pain Relief [place]) 0 gm TOP ASDIRECTED PRN PRN Reason: Perineal Comfort Measure Last Admin: 08/21/19 18:01 Dose: 1 canister Documented by: Docusate Sodium (Colace) 100 mg PO BID PRN PRN Reason: Constipation Last Admin: 08/21/19 22:02 Dose: 100 mg Documented by: Ferrous Sulfate (Ferrous Sulfate) 324 mg PO WITHBREAKFAST KACEY Last Admin: 08/22/19 06:58 Dose: 324 mg Documented by: Hydrocortisone Acetate (Anucort-Hc) 25 mg RECTAL BID PRN PRN Reason: Hemorrhoid pain Oxytocin/Lactated Ringer's (Pitocin In Lr 10 Units/1,000 Ml) 10 unit in 1,000 mls @ 100 mls/hr IV TITRATE KACEY; Protocol Ibuprofen (Motrin) 600 mg PO Q6H PRN PRN Reason: Mild pain or fever Last Admin: 08/23/19 00:16 Dose: 600 mg Documented by: Magnesium Hydroxide (Milk Of Magnesia) 30 ml PO BEDTIME PRN PRN Reason: Constipation Prenat Multivit/Ladies Suit Operator/Iron/Folic Ac ( Plus Iron) 1 each PO DAILY PENDING SALE TO [facility] Last Admin: 08/22/19 09:46 Dose: 1 each Documented by: Josue Salas ([facility]) 1 pad TOP ASDIRECTED PRN PRN Reason: Perineal Comfort Measure Last Admin: 08/21/19 18:01 Dose: 1 container Documented by: Discontinued Medications Acetaminophen (Tylenol) 650 mg PO Q6H PRN PRN Reason: Pain (Mild 1-3) and fever Last Admin: 08/21/19 04:32 Dose: 650 mg Documented by: Ampicillin Sodium (Ampicillin) Confirm Administered Dose 2 gm IV .STK-MED ONE Stop: 08/21/19 04:22 Last Admin: 08/21/19 04:33 Dose: Not Given Documented by: Bupivacaine HCl (Sensorcaine-Mpf 0.25%) 10 ml .ROUTE .STK-MED ONE Stop: 08/22/19 00:01 Diphenhydramine HCl (Benadryl) 25 mg IVPUSH Q6H PRN PRN Reason: pruritis Ephedrine Sulfate (Ephedrine Sulfate) 5 mg IVPUSH ASDIRECTED PRN PRN Reason: Hypotension Fentanyl (Sublimaze) 100 mcg EPIDUR Q3H PRN PRN Reason: Pain Last Admin: 08/21/19 09:06 Dose: 100 mcg Documented by: Fentanyl/Bupivacaine HCl (Fentanyl/Bupivacaine/Ns 2 Mcg-0.125% 100 Ml) 100 ml EPIDUR ASDIRECTED PRN PRN Reason: Pain Last Admin: 08/21/19 09:06 Dose: 100 ml Documented by: Lactated Ringer's (Ringers, Lactated) 1,000 mls @ 40 mls/hr IV ASDIRECTED KACEY Last Admin: 08/21/19 09:08 Dose: 40 mls/hr Documented by: Lactated Ringer's (Ringers, Lactated) 1,000 mls @ 100 mls/hr IV ASDIRECTED KACEY Ampicillin Sodium 2 gm/ Sodium (Chloride) 100 mls @ 200 mls/hr IV ONETIME ONE Stop: 08/20/19 11:59 Last Admin: 08/21/19 04:25 Dose: 200 mls/hr Documented by: Ampicillin Sodium 1 gm/ Sodium (Chloride) 100 mls @ 200 mls/hr IV Q4H PENDING SALE TO [facility] Last Admin: 08/21/19 04:33 Dose: Not Given Documented by: Oxytocin/Lactated Ringer's (Pitocin In Lr 10 Units/1,000 Ml) 10 unit in 1,000 mls @ 100 mls/hr IV .CONTINUOUS KACEY Ampicillin Sodium 1 gm/ Sodium (Chloride) 100 mls @ 200 mls/hr IV Q4H PENDING SALE TO [facility] Last Admin: 08/21/19 17:28 Dose: Not Given Documented by: Oxytocin/Lactated Ringer's (Pitocin In Lr 10 Units/1,000 Ml) 10 unit in 1,000 mls @ 12 mls/hr IV TITRATE KACEY; Protocol Last Titration: 08/21/19 11:32 Dose: 12 munits/min, 72 mls/hr Documented by: Misoprostol (Cytotec) 25 mcg VAG Q4H PRN PRN Reason: cervical ripening Last Admin: 08/20/19 19:34 Dose: 25 mcg Documented by: Misoprostol (Cytotec) Confirm Administered Dose 25 mcg .ROUTE .STK-MED ONE Stop: 08/20/19 23:29 Last Admin: 08/21/19 06:07 Dose: Not Given Documented by: Misoprostol (Cytotec) 25 mcg VAG Q4H KACEY Stop: 08/21/19 15:31 Last Admin: 08/21/19 05:07 Dose: Not Given Documented by: Nalbuphine HCl (Nubain) 10 mg IVPUSH Q2H PRN PRN Reason: Pain Sodium Chloride (Saline Flush) 10 ml FLUSH ASDIRECTED PRN PRN Reason: Keep Vein Open
== END 2019-08-23 10:25 | disposition home or self-care (01) | DRG 807 ==
LOC: JD.OB 10:45 → OBSVTOIN 08-21 14:30 → JD.OB 08-21 15:23
PROVIDERS: ADMIT Obstetrics & Gynecology; ATTEND Obstetrics & Gynecology
PROC: 10E0XZZ Delivery of Products of Conception, External Approach (ICD-10-PCS; principal; 2019-08-21)
PROC: 10907ZC Drainage of Amniotic Fluid, Therapeutic from Products of Conception, Via Natural or Artificial Opening (ICD-10-PCS; 2019-08-21)
PROC: 3E0P7VZ Introduction of Hormone into Female Reproductive, Via Natural or Artificial Opening (ICD-10-PCS; 2019-08-21)
PROC: 3E033VJ Introduction of Other Hormone into Peripheral Vein, Percutaneous Approach (ICD-10-PCS; 2019-08-21)
PROC: 0U7C7ZZ Dilation of Cervix, Via Natural or Artificial Opening (ICD-10-PCS; 2019-08-21)
PROC: 3E0R3BZ Introduction of Anesthetic Agent into Spinal Canal, Percutaneous Approach (ICD-10-PCS; 2019-08-21)
DX: O13.4 Gestational [pregnancy-induced] hypertension without significant proteinuria, complicating childbirth (principal); Z37.0 Single live birth; Z3A.37 37 weeks gestation of pregnancy; O99.824 Streptococcus B carrier state complicating childbirth; Z13.79 Encounter for other screening for genetic and chromosomal anomalies; Z87.891 Personal history of nicotine dependence; O99.52 Diseases of the respiratory system complicating childbirth; J45.909 Unspecified asthma, uncomplicated; Z20.828 Contact with and (suspected) exposure to other viral communicable diseases
CPT/HCPCS: 01967; 36415; 51702; 59025; 59409; 80053; 80306; 82570; 84156; 85025; 86592; A9270-GY; J0290; J2590; J3010; J3490; J7050; J7120; U0002

== ENCOUNTER 2020-04-13 08:26 | Emergency (ER) | payer MEDICAID ==
--- NOTE | 2020-04-13 09:40 | EDM.PDOC ---
ED HPI GENERAL MEDICAL PROBLEM - General Chief Complaint: Lower Extremity Injury/Pain Stated Complaint: RT KNEE AND LEG INJURY Time Seen by Provider: 04/13/20 09:00 Source of Information: Reports: Patient History Limitations: Reports: No Limitations - History of Present Illness INITIAL COMMENTS - FREE TEXT/NARRATIVE: The patient presents with right knee pain. She said last night she ran into the couch with her right lower leg. There was a little bruise there but what hurts worse is her right knee. She says it hurts to walk on it and there is some swelling. Onset: Sudden Duration: Hour(s): Location: Reports: Lower Extremity, Right Quality: Reports: Sharp Severity: Moderate Improves with: Reports: Immobilization Worsens with: Reports: Movement Context: Reports: Trauma (ran into her couch) Associated Symptoms: Reports: No Other Symptoms Right Knee Pain Score (Numeric/FACES): 8 - Related Data Allergies Allergy/AdvReac Type Severity Reaction Status Date / Time No Known Allergies Allergy Verified 04/13/20 08:56 Home Meds: Home Meds . [No Known Home Meds] 04/13/20 [History] Past Medical History - Past Health History Medical/Surgical History: Denies Medical/Surgical History HEENT History: Reports: None Cardiovascular History: Reports: None Respiratory History: Reports: Asthma Gastrointestinal History: Reports: [employer] History: Reports: Musculoskeletal History: Reports: None Neurological History: Reports: None Psychiatric History: Reports: None Endocrine/Metabolic History: Reports: None Hematologic History: Reports: None Immunologic History: Reports: None Dermatologic History: Reports: None - Infectious Disease History Infectious Disease History: Reports: Influenza - Past Surgical History Head Surgeries/Procedures: Reports: None Social & Family History - Family History Family Medical History: No Pertinent Family History Cardiac: Reports: Hypertension Psychiatric: Reports: Schizophrenia, Other (See Below) Other Psychiatric Family History: Post- depression in two maternal aunts. - Tobacco Use Tobacco Use Status *Q: Current Every Day Tobacco User Years of Tobacco use: 5 Packs/Tins Daily: 0.7 - Caffeine Use Caffeine Use: Reports: Energy Drinks, Soda - Recreational Drug Use Recreational Drug Use: No - Living Situation & Occupation Living situation: Reports: Single, with Significant Other Review of Systems - Review of Systems Review Of Systems: See Below Constitutional: Reports: No Symptoms Eyes: Reports: No Symptoms Ears: Reports: No Symptoms Nose: Reports: No Symptoms Mouth/Throat: Reports: No Symptoms Respiratory: Reports: No Symptoms Cardiovascular: Reports: No Symptoms GI/Abdominal: Reports: No Symptoms Genitourinary: Reports: No Symptoms Musculoskeletal: Reports: Other (Right knee pain) ED EXAM, GENERAL - Physical Exam Exam: See Below Exam Limited By: No Limitations General Appearance: Alert, No Apparent Distress Ears: Normal External Exam Nose: Normal Inspection Head: Atraumatic, Normocephalic Neck: Normal Inspection Respiratory/Chest: No Respiratory Distress Extremities: Other (Mild pain upon palpation to the anterior right lower leg. Pain upon palpation with some edema to the right knee. Good sensation and pulses distally.) Course - Vital Signs Last Recorded V/S: Last Vital Signs Temp 98 F 04/13/20 08:54 Pulse 59 L 04/13/20 08:54 Resp 16 04/13/20 08:54 BP 121/69 04/13/20 08:54 Pulse Ox 98 04/13/20 08:54 - Orders/Labs/Meds Orders: Active Orders 24 hr Category Date Time Status Knee Min 4V Rt [CR] Stat Exams 04/13/20 09:03 Taken Durable Medical Equipment for Discharge [DME for Oth 04/13/20 09:42 Ordered Discharge] [COMM] Stat - Re-Assessments/Exams Free Text/Narrative Re-Assessment/Exam: 04/13/20 09:39 I ordered an x-ray of her knee and it looks good. Her ligaments and tendons are stable. I feel she sprained her knee. I will get her in a knee immobilizer. Departure - Departure Time of Disposition: 09:45 Disposition: Home, Self-Care 01 Condition: Good Clinical Impression: Right knee sprain Qualifiers: Encounter type: initial encounter Involved ligament of knee: unspecified ligament Qualified Code(s): S83.91XA - Sprain of unspecified site of right knee, initial encounter - Discharge Information *PRESCRIPTION DRUG MONITORING PROGRAM REVIEWED*: Not Applicable *COPY OF PRESCRIPTION DRUG MONITORING REPORT IN PATIENT WOOD: Not Applicable Referrals: William Walters MD [Primary Care Provider] - Stephon Naqvi MD [Physician] - 1 Week Forms: ED Department Discharge, ED Return to Work/School Form Additional Instructions: Wear the knee immobilizer for a couple of weeks. Take motrin or aleve for pain. Ice your knee for 15 minutes 3 times per day for 2 days. Try to elevate your knee above your heart as much as you can for 2 days to reduce any swelling. Follow up with Dr Naqvi within 1 to 2 weeks if you are not better. Sepsis Event Note (ED) - Evaluation Sepsis Screening Result: No Definite Risk - Focused Exam Vital Signs: Vital Signs Temp Pulse Resp BP Pulse Ox 04/13/20 08:54 98 F 59 L 16 121/69 98 - My Orders Last 24 Hours: My Active Orders 04/13/20 09:03 Knee Min 4V Rt [CR] Stat 04/13/20 09:42 Durable Medical Equipment for Discharge [DME for Discharge] [COMM] Stat - Assessment/Plan Last 24 Hours: My Active Orders 04/13/20 09:03 Knee Min 4V Rt [CR] Stat 04/13/20 09:42 Durable Medical Equipment for Discharge [DME for Discharge] [COMM] Stat
--- NOTE | 2020-04-13 09:52 | CR ---
Right knee: 4 views of the right knee were obtained. Comparison: No previous study is available. Medial and lateral joint compartments are maintained in height. Questionable small joint effusion is seen. Minimal bony density is seen off the anterior tibial tuberosity which is most likely chronic. No acute fracture, dislocation or other bony abnormality is appreciated. Impression: 1. Small joint effusion. 2. Small bony density off the anterior tibial tuberosity which is most likely chronic. 3. No acute osseous finding is appreciated. Diagnostic code #2
== END 2020-04-13 09:58 | disposition home or self-care (01) ==
LOC: JD.ED 08:26
DX: S83.91XA Sprain of unspecified site of right knee, initial encounter (principal); J45.909 Unspecified asthma, uncomplicated; Z72.0 Tobacco use; W22.8XXA Striking against or struck by other objects, initial encounter; Y93.02 Activity, running
CPT/HCPCS: 73564-26-RT; 73564-RT; 99282; 99283